=== PATIENT | female | born 1965 | race Caucasian/White ===

== ENCOUNTER 2018-07-01 12:02 | Emergency (ER) | payer SELFPAY ==
[2018-07-01] MEDS ORDERED: ASPIRIN 81 MG CHEWABLE TABLET ONE (12:31)
[2018-07-01 12:53] LABS: Absolute Lymphocytes (CBC) 2.1 K/uL (0.7-4.9); Absolute Monocytes 0.4 K/uL (0.1-1.3); Absolute Neutrophil 3.7 K/uL (1.8-8.0); Basophils % 0.6 % (0-1.3); Hematocrit 42.6 % (36.0-45.0); Lymphocytes % 32.5 % (15.3-44.8); MCH 26.4 pg (27.0-35.0); MCV 81.2 fL (80-100); MPV 7.2 fL (7.6-11.3); Monocytes % 6.1 % (3.3-12.3); RBC Red Blood Cell Count 5.25 M/uL (3.86-4.86)
[2018-07-01 12:55] LABS: Protime INR 1.08
[2018-07-01 13:14] LABS: Albumin 3.8 g/dL (3.4-5.0); Bilirubin Direct 0.1 mg/dL (0-0.2); Bilirubin Total 0.3 mg/dL (0.2-1.0); Magnesium 2.3 mg/dL (1.8-2.4); Potassium 4.1 mmol/L (3.5-5.1); Protein, Total 7.3 g/dL (6.4-8.2)
--- NOTE | 2018-07-01 13:16 | RAD REPORT ---
EXAM DESCRIPTION: RAD - Chest Pa And Lat (2 Views) - 07/01/2018 1:11 pm CLINICAL HISTORY: Shortness of breath, intermittent chest pain COMPARISON: None. TECHNIQUE: PA and lateral views of the chest were obtained. FINDINGS: The lungs are clear. Heart size is normal and central vasculature is within normal limit s. No pleural effusion or pneumothorax seen. No acute bony finding noted. No aortic abnormality. IMPRESSION: No acute cardiopulmonary process.
[2018-07-01] MEDS ORDERED: LORazepam 2 MG/ML VIAL ONE (13:51)
--- NOTE | 2018-07-01 14:15 | RAD REPORT ---
EXAM DESCRIPTION: CT - Chest For Pe Angio - 07/01/2018 2:02 pm CLINICAL HISTORY: Chest pain, shortness of breath COMPARISON: Chest films same date TECHNIQUE: Dynamically enhanced 3 mm thick images of the chest were obtained during administration o f approximately 150mL Isovue 370 IV contrast. Coronal and oblique MIP reconstruction images were gene rated and reviewed. Exam utilizes a protocol to evaluate the pulmonary arterial tree. All CT scans are performed using dose optimization technique as appropriate and may include automated exposure control or mA/KV adjustment according to patient size. FINDINGS: No pulmonary emboli are identified. The aorta as imaged shows no acute or suspicious finding. No pericardial thickening or effusion. No consolidation, mass or focal infiltrate seen. There is some motion degradation present. A mild int erstitial edema or infiltrate is not confirmed but could be potentially masked. No pleural effusion o r pleural thickening. No mediastinal or hilar suspicious masses. No chest wall masses or abnormal axillary lymphadenopathy. IMPRESSION: No pulmonary emboli identified. No mass, consolidation or focal lung parenchymal process. No significant infiltrate seen. Mild underlying motion degradation could potentially mask minimal int erstitial edema or infiltrate.
--- NOTE | 2018-07-01 15:52 | EDPHYS ---
Physician Documentation [facility] Name: Dona Gaitan Age: 52 yrs Sex: Female : 1965 Arrival Date: 07/01/2018 Time: 12:04 Bed 19 Private MD: None, None ED Physician Gonzalo Perez HPI: 07/01 15:42 This 52 yrs old Female presents to ER via Ambulatory with complaints of Chest wa Pain, Shortness Of Breath. 15:42 The patient or guardian reports chest pain that is located primarily in the substernal wa area, chest, c/o chest pain and SOB. exertional in nature. associated with dizziness, nausea. states almost passed out a week ago at [facility]. 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 Onset: 1 year(s) ago. The pain radiates to both arms, neck, jaw. Associated signs and symptoms: Pertinent positives: dizziness, near-syncope, shortness of breath, Pertinent negatives: abdominal pain, cough. The chest pain is described as a pressure. Duration: The patient or guardian reports multiple episodes, that are intermittent, the episodes last approximately 5 minute(s). Modifying factors: The symptoms are alleviated by nothing. the symptoms are aggravated by exertion. Severity of pain: At its worst the pain was moderate in the emergency department the pain is actually worse. The patient has experienced similar episodes in the past. The patient has not recently seen a physician, has appt to see Dr. Ivy in the AM. 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 - Social history:: Smoking status: Patient/guardian denies using tobacco. - Ebola Screening: : Patient negative for fever greater than or equal to 101.5 degrees Fahrenheit, and additional compatible Ebola Virus Disease symptoms Patient denies exposure to infectious person Patient denies travel to an Ebola-affected area in the 21 days before illness onset No symptoms or risks identified at this time. - Family history:: not pertinent. - Hospitalizations: : No recent hospitalization is reported. ROS: 15:44 Constitutional: Negative for fever, chills, and weight loss, Eyes: Negative for injury, wa pain, redness, and discharge, ENT: Negative for injury, pain, and discharge, Neck: Negative for injury, pain, and swelling, Abdomen/GI: Negative for abdominal pain, nausea, vomiting, diarrhea, and constipation, Back: Negative for injury and pain, : Negative for injury, bleeding, discharge, and swelling, MS/Extremity: Negative for injury and deformity, Skin: Negative for injury, rash, and discoloration, Neuro: Negative for headache, weakness, numbness, tingling, and seizure, Psych: Negative for depression, anxiety, suicide ideation, homicidal ideation, and hallucinations. 15:44 Cardiovascular: Positive for chest pain, Negative for edema, orthopnea, palpitations. 15:44 Respiratory: Positive for shortness of breath, at rest. Negative for cough, sputum production. Exam: 15:45 Constitutional: This is a well developed, well nourished patient who is awake, alert, wa and in no acute distress. Head/Face: Normocephalic, atraumatic. Eyes: Pupils equal round and reactive to light, extra-ocular motions intact. Lids and lashes normal. Conjunctiva and sclera are non-icteric and not injected. Cornea within normal limits. Periorbital areas with no swelling, redness, or edema. ENT: Nares patent. No nasal discharge, no septal abnormalities noted. Tympanic membranes are normal and external auditory canals are clear. Oropharynx with no redness, swelling, or masses, exudates, or evidence of obstruction, uvula midline. Mucous membranes moist. Neck: Trachea midline, no thyromegaly or masses palpated, and no cervical lymphadenopathy. Supple, full range of motion without nuchal rigidity, or vertebral point tenderness. No Meningismus. Chest/axilla: Normal chest wall appearance and motion. Nontender with no deformity. No lesions are appreciated. Cardiovascular: Regular rate and rhythm with a normal S1 and S2. No gallops, murmurs, or rubs. Normal PMI, no JVD. No pulse deficits. Respiratory: Lungs have equal breath sounds bilaterally, clear to auscultation and percussion. No rales, rhonchi or wheezes noted. No increased work of breathing, no retractions or nasal flaring. Abdomen/GI: Soft, non-tender, with normal bowel sounds. No distension or tympany. No guarding or rebound. No evidence of tenderness throughout. Back: No spinal tenderness. No costovertebral tenderness. Full range of motion. Skin: Warm, dry with normal turgor. Normal color with no rashes, no lesions, and no evidence of cellulitis. MS/ Extremity: Pulses equal, no cyanosis. Neurovascular intact. Full, normal range of motion. Neuro: Awake and alert, GCS 15, oriented to person, place, time, and situation. Cranial nerves II-XII grossly intact. Motor strength 5/5 in all extremities. Sensory grossly intact. Cerebellar exam normal. Normal gait. Psych: Awake, alert, with orientation to person, place and time. Behavior, mood, and affect are within normal limits. Vital Signs: 12:10 BP 133 / 87; Pulse 65; Resp 22; Temp 97.7; Pulse Ox 99% on R/A; Weight 104.33 kg; sg Height 4 ft. 11 in. (149.86 cm); Pain 10/10; 12:50 BP 105 / 95; Pulse 65; Resp 18; Pulse Ox 99% on R/A; Pain 7/10; em 14:17 BP 112 / 65; Pulse 73; Resp 18; Pulse Ox 97% on R/A; Pain 5/10; em 15:13 BP 110 / 65; Pulse 65; Resp 15; Pulse Ox 99% on R/A; Pain 5/10; em 15:47 BP 107 / 53; Pulse 64; Resp 14; Pulse Ox 97% on R/A; Pain 7/10; em 12:10 Body Mass Index 46.45 (104.33 kg, 149.86 cm) MDM: 12:09 Patient medically screened. wa 15:45 Differential diagnosis: acute myocardial infarction, anxiety, coronary artery disease wa congestive heart failure pleurisy, pneumonia, pulmonary embolus, unstable angina. 15:46 Data reviewed: vital signs, nurses notes, lab test result(s), EKG, radiologic studies. wa Test interpretation: by ED physician or midlevel provider: EKG: HR 65. normal study. no dysrhythmic or ischemic changes noted. 15:47 Test interpretation: by ED physician or midlevel provider: labs noted within nml wa limits, including troponin. 15:49 Special discussion: discussed case with Dr. Everett, cardiology. advised pt may go and wa come see them in the AM. pt advised. agrees with plan. 15:50 Response to treatment: the patient's symptoms have resolved after treatment. Physician or consultation: Skip Ordonez MD. 07/01 12:24 Order name: Blood Culture Adult (2) or 07/01 12:24 Order name: BMP; Complete Time: 14:56 or 07/01 12:24 Order name: CBC with Diff; Complete Time: 14:56 or 07/01 12:24 Order name: Hepatic Function; Complete Time: 14:56 or 07/01 12:24 Order name: Lipase; Complete Time: 14:56 or 07/01 12:24 Order name: Magnesium; Complete Time: 14:56 or 07/01 12:24 Order name: XRAY Chest Pa And Lat (2 Views); Complete Time: 14:56 or 07/01 12:24 Order name: CT Chest For PE Angio; Complete Time: 14:56 or 07/01 12:24 Order name: NT PRO-BNP; Complete Time: 14:56 or 07/01 12:24 Order name: PT-INR; Complete Time: 14:56 or 07/01 12:24 Order name: Troponin (emerg Dept Use Only); Complete Time: 14:56 or 07/01 12:24 Order name: EKG; Complete Time: 12:25 or 07/01 12:24 Order name: Cardiac monitoring; Complete Time: 12:42 or 07/01 12:24 Order name: EKG - Nurse/Tech; Complete Time: 12:42 or 07/01 12:24 Order name: IV Saline Lock; Complete Time: 12:42 or 07/01 12:24 Order name: Labs collected and sent; Complete Time: 12:42 or 07/01 12:24 Order name: O2 Per Protocol; Complete Time: 12:42 or 07/01 12:24 Order name: O2 Sat Monitoring; Complete Time: 12:42 or 07/01 12:24 Order name: Urine Dipstick-Ancillary (obtain specimen); Complete Time: 13:23 or Administered Medications: 12:42 Drug: Aspirin Chewable Tablet 324 mg Route: PO; em 13:23 Follow up: Response: No adverse reaction em 13:50 Drug: Ativan 0.5 mg Route: IVP; Site: left antecubital; iw 14:30 Follow up: Response: No adverse reaction; Pain is decreased em 13:55 Not Given (Duplicate Order): Ativan 0.5 mg IVP once wa Disposition: 07/01/18 15:52 Discharged to Home. Impression: Chest pain, acute on chronic, Shortness of Breath. - Condition is Stable. - Discharge Instructions: Shortness of Breath, [id number], Nonspecific Chest Pain, [id number]. - Medication Reconciliation Form, Thank You Letter, Antibiotic Education, Prescription Opioid Use form. - Follow up: Tomi Ivy MD; When: Tomorrow. - Problem is new. - Symptoms have improved. - Notes: take a baby aspirin daily. please follow up tomorrow with your appointment with the furnace liner Dr. Ivy. Signatures: Dispatcher [employer] [facility] Ulysses Khan, GATE ATTENDANT GATE ATTENDANT em Velma Saavedra RN RN Gonzalo Perez MD MD wa Corrections: (The following items were deleted from the chart) 14:04 12:25 Blood Culture ordered. [facility] EDMD 16:09 15:52 07/01/2018 15:52 Discharged to Home. Impression: Chest pain, acute on chronic; em Shortness of Breath. Condition is Stable. Forms are Medication Reconciliation Form, Thank You Letter, Antibiotic Education, Prescription Opioid Use. Follow up: Tomi Ivy; When: Tomorrow. Problem is new. Symptoms have improved. wa
--- NOTE | 2018-07-01 15:52 | ER ---
Nurse's Notes [facility] Name: Dona Gaitan Age: 52 yrs Sex: Female : 1965 Arrival Date: 07/01/2018 Time: 12:04 Bed 19 Private MD: None, None Diagnosis: Chest pain, acute on chronic;Shortness of Breath Presentation: 07/01 12:09 Presenting complaint: Patient states: CP off and on for about a year, reports worsening sg since nearly passing out on last Thursday at the [facility], has had SOB since then, CP today that radiates up and into the left arm and neck and jaw, reports Nausea, denies Fever/Vomiting/Diarrhea. Transition of care: patient was not received from another setting of care. Onset of symptoms was July 01, 2018. Risk Assessment: Do you want to hurt yourself or someone else? Patient reports no desire to harm self or others. Initial Sepsis Screen: Does the patient meet any 2 criteria? RR > 20 per min. No. Patient's initial sepsis screen is negative. Does the patient have a suspected source of infection? No. Patient's initial sepsis screen is negative. Care prior to arrival: None. 12:09 Method Of Arrival: Ambulatory sg 12:09 Acuity: JIE 3 sg COAL PICKER: 12:10 LMP N/A - Irregular menses sg Historical: - Allergies: 12:55 PENICILLINS; em 12:55 "tequin"; em - PMHx: 12:55 None; em - PSHx: 12:55 Tonsillectomy; em - Immunization history:: Adult Immunizations up to date. - Social history:: Smoking status: Patient/guardian denies using tobacco. - Ebola Screening: : Patient negative for fever greater than or equal to 101.5 degrees Fahrenheit, and additional compatible Ebola Virus Disease symptoms Patient denies exposure to infectious person Patient denies travel to an Ebola-affected area in the 21 days before illness onset No symptoms or risks identified at this time. - Family history:: not pertinent. - Hospitalizations: : No recent hospitalization is reported. Screenin:45 Abuse screen: Denies threats or abuse. Nutritional screening: No deficits noted. em Tuberculosis screening: No symptoms or risk factors identified. Fall Risk None identified. Assessment: 12:30 General: Appears in no apparent distress. uncomfortable, Behavior is cooperative, em anxious, reports CP for about a year, yesterday became worse and almost passed out, also has SOB on exertion, denies N/V. Pain: Complains of pain in chest Pain does not radiate. Pain began over a year ago. Neuro: Level of Consciousness is awake, alert, obeys commands, Oriented to person, place, time, situation. Cardiovascular: Reports chest pain, Denies nausea, vomiting, Capillary refill < 3 seconds Patient's skin is warm and dry. Respiratory: Reports shortness of breath on exertion Airway is patent Respiratory effort is even, unlabored, Respiratory pattern is regular, symmetrical, Breath sounds are clear bilaterally. Denies cough. GI: Abdomen is obese. : No signs and/or symptoms were reported regarding the genitourinary system. EENT: No signs and/or symptoms were reported regarding the EENT system. Derm: Skin is intact, Skin is pink, warm \\T\\ dry. Musculoskeletal: Capillary refill < 3 seconds, Range of motion: intact in all extremities. 12:45 Reassessment: Patient appears in no apparent distress at this time. I agree with above iw assessment by Ulysses Khan LVN. 13:25 Reassessment: Patient appears in no apparent distress at this time. Patient and/or em family updated on plan of care and expected duration. Pain level reassessed. Patient is alert, oriented x 3, equal unlabored respirations, skin warm/dry/pink. 13:50 Reassessment: pt states she got very anxious while attempting CT, Dr. Perez was iw notified, verbal order for Ativan 0.5 mg IVP, given now. 14:50 Reassessment: Patient appears in no apparent distress at this time. Patient and/or em family updated on plan of care and expected duration. Pain level reassessed. Patient is alert, oriented x 3, equal unlabored respirations, skin warm/dry/pink. Patient states feeling better. 15:45 Reassessment: Patient appears in no apparent distress at this time. Patient and/or em family updated on plan of care and expected duration. Pain level reassessed. Patient is alert, oriented x 3, equal unlabored respirations, skin warm/dry/pink. rates pain 05/18, Dr. Perez notified, no new orders received. Vital Signs: 12:10 BP 133 / 87; Pulse 65; Resp 22; Temp 97.7; Pulse Ox 99% on R/A; Weight 104.33 kg; sg Height 4 ft. 11 in. (149.86 cm); Pain 10/10; 12:50 BP 105 / 95; Pulse 65; Resp 18; Pulse Ox 99% on R/A; Pain 7/10; em 14:17 BP 112 / 65; Pulse 73; Resp 18; Pulse Ox 97% on R/A; Pain 5/10; em 15:13 BP 110 / 65; Pulse 65; Resp 15; Pulse Ox 99% on R/A; Pain 5/10; em 15:47 BP 107 / 53; Pulse 64; Resp 14; Pulse Ox 97% on R/A; Pain 7/10; em 12:10 Body Mass Index 46.45 (104.33 kg, 149.86 cm) ED Course: 12:04 Patient arrived in ED. mr 12:05 None, None is Private Physician. mr 12:08 Lj Antoine, RN is Primary Nurse. sg 12:09 Gonzalo Perez MD is Attending Physician. wa 12:10 Triage completed. sg 12:11 Arm band placed on. sg 12:12 Ulysses Khan LVN is Primary Nurse. em 12:20 EKG done, by oil well fishing tool technician. reviewed by Gonzalo Perez MD. at1 12:35 No provider procedures requiring assistance completed. Inserted saline lock: 22 gauge em in left antecubital area, using aseptic technique. Blood collected. 12:35 Initial lab(s) drawn, by ms, sent to lab. Patient maintains SpO2 saturation greater em than 95% on room air. 12:45 Patient has correct armband on for positive identification. basket bottom machine operator on. Pulse em ox on. NIBP on. 13:00 Patient moved to radiology via wheelchair. 1 13:10 X-ray completed. Patient tolerated procedure well. 1 13:10 XRAY Chest Pa And Lat (2 Views) In Process Unspecified. EDMS 13:11 Patient moved back from radiology. 1 13:11 Blood Culture Adult (2) Sent. dm5 14:02 CT Chest For PE Angio In Process Unspecified. EDMS 15:51 Tomi Ivy MD is Referral Physician. wa 16:06 IV discontinued, intact, bleeding controlled, No redness/swelling at site. Pressure em dressing applied. Administered Medications: 12:42 Drug: Aspirin Chewable Tablet 324 mg Route: PO; em 13:23 Follow up: Response: No adverse reaction em 13:50 Drug: Ativan 0.5 mg Route: IVP; Site: left antecubital; iw 14:30 Follow up: Response: No adverse reaction; Pain is decreased em 13:55 Not Given (Duplicate Order): Ativan 0.5 mg IVP once wa Outcome: 15:52 Discharge ordered by . wa 16:06 Discharged to home ambulatory. em 16:06 Condition: good 16:06 Discharge instructions given to patient, family, Instructed on discharge instructions, follow up and referral plans. Demonstrated understanding of instructions, follow-up care. 16:09 Patient left the ED. em Signatures: Dispatcher [employer] Ana Ross, RN RN Lj Forrest, RN ROXIE Sulema Martinez mr Horvath, Julia mh1 Ulysses Khan, EXTRUSION DIE CORRECTOR EXTRUSION DIE CORRECTOR em Velma Saavedra RN RN Maritza Rich, data technician EKG Tat1 Gonzalo Perez MD MD wa
--- NOTE | 2018-07-01 16:28 | EKG ---
Test Date: 2018-07-01 Test Time: 12:15:12 Mixing Supervisor: YAIR MEASUREMENT RESULTS: Intervals: Rate: 65 IN: 156 QRSD: 82 QT: 408 QTc: 424 Karnack: P: 22 IN: 156 QRS: -8 T: 33 INTERPRETIVE STATEMENTS: Normal sinus rhythm Normal ECG No previous ECG available for comparison Electronically Signed On 07-01-18 16:27:09 CDT by Skip Ordonez
== END 2018-07-01 16:09 | disposition home or self-care (01) ==
LOC: ER 12:02
DX: R07.89 Other chest pain (principal); Z88.0 Allergy status to penicillin
CPT/HCPCS: 36415; 71046; 71275; 80048; 80076; 83690; 83735; 83880; 84484; 85025; 85610; 93005; 96374; 99285; Q9967

== ENCOUNTER 2022-03-25 08:41 | Inpatient (IN) | payer SELFPAY ==
[2022-03-25] MEDS ORDERED: ONDANSETRON 4 MG/2 ML VIAL ONE (09:16)
[2022-03-25] MEDS ORDERED: FAMOTIDINE 20 MG/2 ML VIAL IV ONE (09:16)
[2022-03-25] MEDS ORDERED: NA CHLORIDE 0.9% 2,000 ML ONE (09:17)
[2022-03-25 09:30] LABS: Absolute Lymphocytes (CBC) 1.5 K/uL (0.7-4.9); Hematocrit 45.2 % (36.0-45.0); Lymphocytes % 9.8 % (15.3-44.8); MPV 6.7 fL (7.6-11.3); RBC Red Blood Cell Count 5.74 M/uL (3.86-4.86)
[2022-03-25 09:44] LABS: Bilirubin Direct 0.1 mg/dL (0-0.2); Bilirubin Total 0.5 mg/dL (0.2-1.0); Magnesium 2.2 mg/dL (1.8-2.4); Potassium 3.7 mmol/L (3.5-5.1); Troponin High Sensitivity 5.3 pg/mL (<58.9)
--- NOTE | 2022-03-25 10:00 | RAD REPORT ---
EXAM DESCRIPTION: US - Abdomen Exam Limited - 03/25/2022 9:44 am CLINICAL HISTORY: ABD PAIN COMPARISON: ABDOMINAL EXAM LIMITED dated 07/30/2010 FINDINGS: A single 10-12 mm size gallstone is present near the neck of the gallbladder. No other sto ne or sludge identifiable. There is no wall thickening or pericholecystic fluid. No common duct stone or biliary tree dilatation identified. IMPRESSION: Single 10-12 mm size gallstone with no other gallbladder or biliary tree finding.
--- NOTE | 2022-03-25 10:00 | RAD REPORT ---
EXAM DESCRIPTION: RAD - Chest Single View - 03/25/2022 9:47 am CLINICAL HISTORY: ABDOMINAL DISTENTION COMPARISON: Two view chest 07/01/2018 TECHNIQUE: AP portable chest image was obtained 03/25/2022 9:47 am . FINDINGS: Lungs are clear. Interstitial pattern matches comparison. Heart and vasculature are normal . No measurable pleural effusion and no pneumothorax. No acute bony abnormality seen. No acute aortic findings suspected. IMPRESSION: No acute cardiopulmonary process. No significant change from comparison study.
[2022-03-25 10:49] LABS: Protime INR 1.15
--- NOTE | 2022-03-25 10:55 | RAD REPORT ---
EXAM DESCRIPTION: CT - Abdomen Pelvis W Contrast - 03/25/2022 10:28 am CLINICAL HISTORY: Abdominal pain, acute, nonlocalized COMPARISON: Abdomen Exam Limited dated 03/25/2022; CT ABD PELVIS W CONTRAST dated 07/30/2010 TECHNIQUE: Biphasic, helical CT imaging of the abdomen and pelvis was performed following 100 ml non -ionic IV contrast. No oral contrast administered. All CT scans are performed using dose optimization technique as appropriate and may include automated exposure control or mA/KV adjustment according to patient size. FINDINGS: No suspicious findings in the lung bases. Diffuse fatty infiltration of the liver is present with no focal liver lesion. No portal vein abnorma lity. Pancreas and spleen show no suspicious findings. A single 10-12 mm gallstone is seen near the n jelly of the gallbladder. This matches the ultrasound finding. No gallbladder dilatation, wall thickeni ng or edema seen. No biliary tree dilatation. Symmetric renal function is seen with no hydronephrosis or suspicious renal mass. No pyelonephritis o r acute parenchymal process. No bladder abnormalities. No adrenal abnormalities. Uterus and ovaries s how no suspicious findings. No gastric dilatation or gastric wall thickening seen. Small bowel loops are not dilated. Distal smal l bowel drake are mildly prominent. Terminal ileum and ileocecal valve are unremarkable. The appendix is not clearly defined. Appendix was not clearly seen on the 2009 CT study. Colon is not dilated. No free air or pneumatosis present. There is a small quantity of free fluid in the cul de sac and in the right lower quadrant. Trace amounts of stranding in the fatty tissues. No hernia, mass or bulky lymphadenopathy. No suspicious bony findings. IMPRESSION: No bowel obstruction, free air or surgically emergent finding. Patient has minimal amount of free fluid and some stranding in the fatty tissues of the pelvis. Loops of small bowel are prominent and could reflect a nonspecific enteritis. The appendix is not yu albina defined as a normal structure but there are no direct or indirect findings suspicious for acute appendicitis. The appendix is not clearly visible on the 2010 CT study. No acute or BSW finding. Liver shows fatty infiltration.
--- NOTE | 2022-03-25 11:05 | ER ---
Nurse's Notes [facility] Name: Dona Gaitan Age: 56 yrs Sex: Female : 1965 Arrival Date: 03/25/2022 Time: 08:42 Bed 7 Private MD: Diagnosis: Abdominal pain, Generalized;Other cholelithiasis without obstruction;Vomiting;Diarrhea, unspecified;Elevated white blood cell count;Other specified noninfective gastroenteritis and colitis;Dehydration Presentation: 03/25 08:42 Chief complaint: EMS states: Pt c/o nausea and vomiting x 3 days, diarrhea x 4 days, ph also reports RUQ when symptoms began. No fever, VSS, BGL 177, received Zofran 4mg IVP x 2 and 500 mL NS. Coronavirus screen: Vaccine status: Patient reports being unvaccinated. Ebola Screen: No symptoms or risks identified at this time. Initial Sepsis Screen: Does the patient meet any 2 criteria? No. Patient's initial sepsis screen is negative. Does the patient have a suspected source of infection? No. Patient's initial sepsis screen is negative. Risk Assessment: Do you want to hurt yourself or someone else? Patient reports no desire to harm self or others. Onset of symptoms was March 25, 2022. 08:42 Method Of Arrival: EMS: [facility] 08:42 Acuity: JIE 3 ph Triage Assessment: 08:50 General: Appears in no apparent distress. uncomfortable, Behavior is calm, cooperative, ph appropriate for age, Denies fever, chills. Pain: Complains of pain in right upper quadrant. Neuro: Arthur Agitation-Sedation Scale (RASS): 0 - Alert and Calm Level of Consciousness is awake, alert, obeys commands, Oriented to person, place, time, situation. Cardiovascular: Capillary refill < 3 seconds in bilateral fingers Patient's skin is warm and dry. Respiratory: Airway is patent Respiratory effort is even, unlabored, Respiratory pattern is regular, symmetrical. GI: Reports upper abdominal pain, diarrhea, nausea, vomiting. Derm: Skin is intact, Skin is pink, warm \\T\\ dry. Musculoskeletal: Circulation, motion, and sensation intact. Range of motion: intact in all extremities. 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 - Social history:: Smoking status: Patient denies any tobacco usage or history of. Screenin:49 Abuse screen: Denies threats or abuse. Denies injuries from another. Nutritional ph screening: No deficits noted. Tuberculosis screening: No symptoms or risk factors identified. Fall Risk None identified. Assessment: 08:51 General: SEE TRIAGE ASSESSMENT. ph 09:45 Reassessment: No changes from previously documented assessment. Patient and/or family ll1 updated on plan of care and expected duration. Pain level reassessed. Patient is alert, oriented x 3, equal unlabored respirations, skin warm/dry/pink. 10:45 Reassessment: No changes from previously documented assessment. Patient and/or family ll1 updated on plan of care and expected duration. Pain level reassessed. Patient is alert, oriented x 3, equal unlabored respirations, skin warm/dry/pink. GI: Reports diarrhea. 12:01 Reassessment: Patient appears in no apparent distress at this time. Patient and/or ph family updated on plan of care and expected duration. Pain level reassessed. Patient is alert, oriented x 3, equal unlabored respirations, skin warm/dry/pink. 13:00 Reassessment: No changes from previously documented assessment. Patient and/or family ll1 updated on plan of care and expected duration. Pain level reassessed. Patient is alert, oriented x 3, equal unlabored respirations, skin warm/dry/pink. 14:00 Reassessment: No changes from previously documented assessment. Patient and/or family ll1 updated on plan of care and expected duration. Pain level reassessed. Patient is alert, oriented x 3, equal unlabored respirations, skin warm/dry/pink. GI: Reports nausea. 14:46 Reassessment: No changes from previously documented assessment. Patient and/or family ll1 updated on plan of care and expected duration. Pain level reassessed. Patient is alert, oriented x 3, equal unlabored respirations, skin warm/dry/pink. Vital Signs: 08:42 BP 137 / 98; Pulse 104; Resp 18; Temp 97.4; Pulse Ox 94% on R/A; Weight 104.33 kg; ph Height 4 ft. 11 in. (149.86 cm); 09:15 BP 148 / 86; Pulse 88; Resp 17; Pulse Ox 97% ; ll1 10:15 BP 153 / 84; Pulse 92; Resp 17; Pulse Ox 97% on R/A; ll1 14:35 BP 158 / 70; Pulse 92; Resp 17; Temp 97.2; Pulse Ox 97% on R/A; Pain 7/10; ll1 08:42 Body Mass Index 46.45 (104.33 kg, 149.86 cm) ph ED Course: 08:42 Patient arrived in ED. ph 08:43 Mitchell Matson MD is Attending Physician. yovani 08:48 Triage completed. ph 08:48 Arm band placed on. ph 08:49 Patient has correct armband on for positive identification. Bed in low position. Call ph light in reach. Side rails up X 1. Pulse ox on. NIBP on. Door closed. Noise minimized. Warm blanket given. 09:09 Racheal Perry, ROXIE is Primary Nurse. ll1 09:19 Lactate Sent. mh5 09:19 SARS-COV-2 RT PCR (Document "Date of Onset" if Symptomatic) Sent. mh5 09:19 Basic Metabolic Panel Sent. mh5 09:19 CBC with Diff Sent. mh5 09:19 LFT's Sent. mh5 09:19 Magnesium Sent. 5 09:19 NT PRO-BNP Sent. 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 5 09:20 PT-INR Sent. 5 09:20 Troponin HS Sent. mh5 09:20 Initial lab(s) drawn, by ar, sent to lab. EKG done, by ED staff, reviewed by Mitchell Matson MD. Maintain EMS IV. Dressing intact. Good blood return noted. Site clean \\T\\ dry. 09:45 XRAY Chest (1 view) In Process Unspecified. EDMS 09:45 US Abdomen Limited In Process Unspecified. EDMS 10:15 Inserted saline lock: 22 gauge in left antecubital area, using aseptic technique. Blood ll1 collected. 10:16 IV discontinued, intact, bleeding controlled, No redness/swelling at site. Pressure ll1 dressing applied, R hand IV DC'd. 10:32 CT Abd/Pelvis - IV Contrast Only In Process Unspecified. EDMS 11:00 Amna Betts MD is Hospitalizing Provider. yovani 12:01 No provider procedures requiring assistance completed. Patient admitted, IV remains in ph place. Administered Medications: 09:19 Drug: NS 0.9% (30 ml/kg) 30 ml/kg Route: IV; Rate: bolus; Site: right hand; ll1 11:20 Follow up: Response: No adverse reaction; IV Status: Completed infusion; IV Intake: ll1 2000ml 09:19 Drug: Pepcid (famotidine) 20 mg Route: IVP; Site: right hand; ll1 10:16 Follow up: Response: No adverse reaction ll1 09:19 Drug: Zofran (Ondansetron) 4 mg Route: IVP; Site: right hand; ll1 10:16 Follow up: Response: No adverse reaction ll1 11:19 Drug: Flagyl (metroNIDAZOLE) 500 mg Volume: 100 ml; Route: IVPB; Rate: 200 ml/hr; ll1 Infused Over: 30 mins; Site: left antecubital; 12:00 Follow up: Response: No adverse reaction; IV Status: Completed infusion ph 11:19 Drug: morphine 4 mg Route: IVP; Site: left antecubital; ll1 11:59 Follow up: Response: No adverse reaction; Pain is decreased ph 11:20 Drug: Phenergan (promethazine) 12.5 mg Route: IVP; Site: left antecubital; ll1 11:59 Follow up: Response: No adverse reaction ph 11:58 Drug: Cipro (ciprofloxacin) 400 mg Volume: 200 ml; Route: IVPB; Infused Over: 60 mins; ph Site: left antecubital; 14:49 Follow up: Response: No adverse reaction; IV Status: Completed infusion; IV Intake: ll1 200ml 14:29 Drug: Phenergan (promethazine) 6.25 mg Route: IVP; Site: left antecubital; ll1 14:46 Follow up: Response: No adverse reaction ll1 14:30 Drug: morphine 4 mg {Note: rass 0, pain 9/10.} Route: IVP; Site: left antecubital; ll1 14:46 Follow up: Response: No adverse reaction ll1 Medication: 08:49 VIS not applicable for this client. ph Intake: 11:20 IV: 2000ml; Total: 2000ml. ll1 14:49 IV: 200ml; Total: 2200ml. ll1 Outcome: 11:05 Decision to Hospitalize by Provider. [facility] 14:37 Admitted to Tele accompanied by tech, via wheelchair, room 229, with chart, Report ll1 called to Maryjane Mata RN on . 14:37 Condition: stable 14:37 Instructed on the need for admit. 14:50 Patient left the ED. ll1 Signatures: Dispatcher [employer] EDMitchell Ward MD MD cha Hall, Patricia, RN RN [place] [id number] Racheal Perry RN RN ll1
--- NOTE | 2022-03-25 11:05 | EDPHYS ---
Physician Documentation [facility] Name: Dona Gaitan Age: 56 yrs Sex: Female : 1965 Arrival Date: 03/25/2022 Time: 08:42 Bed 7 Private MD: EDER Physician Mitchell Matson HPI: 03/25 09:04 This 56 yrs old Female presents to ER via EMS with complaints of yovani Nausea/Vomiting/Diarrhea. 09:04 The patient presents to the emergency department with nausea, vomiting. The patient yovani presents to the emergency department with diarrhea, that is continuous, abdominal pain, of the right upper quadrant, left upper quadrant and right lower quadrant. Onset: The symptoms/episode began/occurred 5 day(s) ago. Possible causes: unknown. The symptoms are aggravated by nothing. The symptoms are alleviated by nothing. Associated signs and symptoms: Pertinent positives: abdominal pain, diarrhea, nausea, vomiting. Severity of symptoms: At their worst the symptoms were mild in the emergency department the symptoms are unchanged. The patient has not experienced similar symptoms in the past. KAIAWHINA: 14:52 LMP N/A - Post-menopause ll1 Historical: - Allergies: 08:48 "tequin"; ph 08:48 PENICILLINS; ph - PMHx: 08:48 None; ph - Immunization history:: Adult Immunizations unknown. - Social history:: Smoking status: Patient denies any tobacco usage or history of. ROS: 09:06 Constitutional: Negative for fever, chills, and weight loss, Eyes: Negative for injury, yovani pain, redness, and discharge, ENT: Negative for injury, pain, and discharge, Neck: Negative for injury, pain, and swelling, Cardiovascular: Negative for chest pain, palpitations, and edema, Respiratory: Negative for shortness of breath, cough, wheezing, and pleuritic chest pain, Back: Negative for injury and pain, : Negative for injury, bleeding, discharge, and swelling, MS/Extremity: Negative for injury and deformity, Skin: Negative for injury, rash, and discoloration, Neuro: Negative for headache, weakness, numbness, tingling, and seizure, Psych: Negative for depression, anxiety, suicide ideation, homicidal ideation, and hallucinations, Allergy/Immunology: Negative for hives, rash, and allergies, Endocrine: Negative for neck swelling, polydipsia, polyuria, polyphagia, and marked weight changes, Hematologic/Lymphatic: Negative for swollen nodes, abnormal bleeding, and unusual bruising. 09:06 Abdomen/GI: Positive for abdominal pain, of the epigastric area, right upper quadrant, left upper quadrant and right lower quadrant. Exam: 09:06 Constitutional: This is a well developed, well nourished patient who is awake, alert, yovani and in no acute distress. Head/Face: Normocephalic, atraumatic. Eyes: Pupils equal round and reactive to light, extra-ocular motions intact. Lids and lashes normal. Conjunctiva and sclera are non-icteric and not injected. Cornea within normal limits. Periorbital areas with no swelling, redness, or edema. ENT: Nares patent. No nasal discharge, no septal abnormalities noted. Tympanic membranes are normal and external auditory canals are clear. Oropharynx with no redness, swelling, or masses, exudates, or evidence of obstruction, uvula midline. Mucous membranes moist. Neck: Trachea midline, no thyromegaly or masses palpated, and no cervical lymphadenopathy. Supple, full range of motion without nuchal rigidity, or vertebral point tenderness. No Meningismus. Chest/axilla: Normal chest wall appearance and motion. Nontender with no deformity. No lesions are appreciated. Cardiovascular: Regular rate and rhythm with a normal S1 and S2. No gallops, murmurs, or rubs. Normal PMI, no JVD. No pulse deficits. Respiratory: Lungs have equal breath sounds bilaterally, clear to auscultation and percussion. No rales, rhonchi or wheezes noted. No increased work of breathing, no retractions or nasal flaring. Back: No spinal tenderness. No costovertebral tenderness. Full range of motion. Female : Normal external genitalia. Skin: Warm, dry with normal turgor. Normal color with no rashes, no lesions, and no evidence of cellulitis. MS/ Extremity: Pulses equal, no cyanosis. Neurovascular intact. Full, normal range of motion. Neuro: Awake and alert, GCS 15, oriented to person, place, time, and situation. Cranial nerves II-XII grossly intact. Motor strength 5/5 in all extremities. Sensory grossly intact. Cerebellar exam normal. Normal gait. Psych: Awake, alert, with orientation to person, place and time. Behavior, mood, and affect are within normal limits. 09:06 Abdomen/GI: Inspection: abdomen appears normal, Bowel sounds: normal, Palpation: mild abdominal tenderness, in the epigastric area and right upper quadrant, Liver: no appreciated palpable abnormalities, Hernia: not appreciated. 09:35 ECG was reviewed by the Attending Physician. [facility] Vital Signs: 08:42 BP 137 / 98; Pulse 104; Resp 18; Temp 97.4; Pulse Ox 94% on R/A; Weight 104.33 kg; ph Height 4 ft. 11 in. (149.86 cm); 09:15 BP 148 / 86; Pulse 88; Resp 17; Pulse Ox 97% ; ll1 10:15 BP 153 / 84; Pulse 92; Resp 17; Pulse Ox 97% on R/A; ll1 14:35 BP 158 / 70; Pulse 92; Resp 17; Temp 97.2; Pulse Ox 97% on R/A; Pain 7/10; ll1 08:42 Body Mass Index 46.45 (104.33 kg, 149.86 cm) ph MDM: 08:43 Patient medically screened. [facility] 09:07 Differential diagnosis: cholecystitis, pancreatitis, diverticulitis, viral yovani gastroenteritis, gastroenteritis. Data reviewed: vital signs, nurses notes, lab test result(s), EKG, radiologic studies, CT scan, plain films, ultrasound. 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 Test interpretation: by ED physician or midlevel provider: ECG, plain radiologic studies. Counseling: I had a detailed discussion with the patient and/or guardian regarding: the historical points, exam findings, and any diagnostic results supporting the discharge/admit diagnosis, lab results, radiology results. Medical screen evaluation completed. [facility] emergency medical condition absent. 03/25 09:02 Order name: Basic Metabolic Panel; Complete Time: 10:29 [facility] 03/25 09:02 Order name: CBC with Diff; Complete Time: 10: [facility] 03/25 09:02 Order name: LFT's; Complete Time: 10:29 [facility] 03/25 09:02 Order name: Magnesium; Complete Time: 10: [facility] 03/25 09:02 Order name: NT PRO-BNP; Complete Time: 10: [facility] 03/25 09:02 Order name: PT-INR; Complete Time: 10:57 [facility] 03/25 09:02 Order name: Troponin HS; Complete Time: 10:29 [facility] 03/25 09:02 Order name: Lipase; Complete Time: 10:29 [facility] 03/25 09:03 Order name: Lactate [facility] 03/25 09:03 Order name: Urine Culture [facility] 03/25 09:04 Order name: SARS-COV-2 RT PCR (Document "Date of Onset" if Symptomatic) [facility] 03/25 13:05 Order name: CBC with Automated Diff EDMS 03/25 13:05 Order name: CBC with Automated Diff EDMS 03/25 13:05 Order name: Comprehensive Metabolic Panel [facility] 03/25 09:02 Order name: XRAY Chest (1 view); Complete Time: 10:29 [facility] 03/25 09:02 Order name: EKG; Complete Time: 09:04 [facility] 03/25 09:02 Order name: CT Abd/Pelvis - IV Contrast Only; Complete Time: 10:57 [facility] 03/25 09:02 Order name: US Abdomen Limited; Complete Time: 10:29 [facility] 03/25 13:05 Order name: Comprehensive Metabolic Panel [facility] 03/25 13:07 Order name: Lipase [facility] 03/25 09:02 Order name: Cardiac monitoring; Complete Time: 09:20 [facility] 03/25 09:02 Order name: EKG - Nurse/Tech; Complete Time: 09:20 [facility] 03/25 09:02 Order name: IV Saline Lock; Complete Time: 09:05 [facility] 03/25 09:02 Order name: Labs collected and sent; Complete Time: 09:05 [facility] 03/25 09:02 Order name: O2 Per Protocol; Complete Time: 09:05 [facility] 03/25 09:02 Order name: O2 Sat Monitoring; Complete Time: 09:05 [facility] 03/25 13:05 Order name: Clear Liquid EDMS EC:35 Rate is 90 beats/min. Rhythm is regular. QRS [place] is Normal. CA interval is normal. QRS yovani interval is normal. QT interval is normal. No Q waves. T waves are Normal. No ST changes noted. Clinical impression: Normal ECG and No evidence of ischemia. Interpreted by me. Reviewed by me. Administered Medications: 09:19 Drug: NS 0.9% (30 ml/kg) 30 ml/kg Route: IV; Rate: bolus; Site: right hand; ll1 11:20 Follow up: Response: No adverse reaction; IV Status: Completed infusion; IV Intake: ll1 2000ml 09:19 Drug: Pepcid (famotidine) 20 mg Route: IVP; Site: right hand; ll1 10:16 Follow up: Response: No adverse reaction ll1 09:19 Drug: Zofran (Ondansetron) 4 mg Route: IVP; Site: right hand; ll1 10:16 Follow up: Response: No adverse reaction ll1 11:19 Drug: Flagyl (metroNIDAZOLE) 500 mg Volume: 100 ml; Route: IVPB; Rate: 200 ml/hr; ll1 Infused Over: 30 mins; Site: left antecubital; 12:00 Follow up: Response: No adverse reaction; IV Status: Completed infusion ph 11:19 Drug: morphine 4 mg Route: IVP; Site: left antecubital; ll1 11:59 Follow up: Response: No adverse reaction; Pain is decreased ph 11:20 Drug: Phenergan (promethazine) 12.5 mg Route: IVP; Site: left antecubital; ll1 11:59 Follow up: Response: No adverse reaction ph 11:58 Drug: Cipro (ciprofloxacin) 400 mg Volume: 200 ml; Route: IVPB; Infused Over: 60 mins; ph Site: left antecubital; 14:49 Follow up: Response: No adverse reaction; IV Status: Completed infusion; IV Intake: ll1 200ml 14:29 Drug: Phenergan (promethazine) 6.25 mg Route: IVP; Site: left antecubital; ll1 14:46 Follow up: Response: No adverse reaction ll1 14:30 Drug: morphine 4 mg {Note: rass 0, pain 9/10.} Route: IVP; Site: left antecubital; ll1 14:46 Follow up: Response: No adverse reaction ll1 Disposition Summary: 03/25/22 11:05 Hospitalization Ordered Hospitalization Status: Observation yovani Provider: Amna Betts cha Location: Telemetry/MedSurg (Inpatient) yovani Condition: Fair yovani Problem: new yovani Symptoms: have improved yovani Bed/Room Type: Standard yovani Room Assignment: 229(03/25/22 13:59) bd Diagnosis - Abdominal pain, Generalized yovani - Other cholelithiasis without obstruction yovani - Vomiting yovani - Diarrhea, unspecified yovani - Elevated white blood cell count yovani - Other specified noninfective gastroenteritis and colitis yovani - Dehydration yovani Forms: - Medication Reconciliation Form yovani - SBAR form yovani Signatures: Dispatcher [employer] EDLeslie Leo Corey, MD MD cha Hall, Patricia, RN RN Racheal Perry RN RN ll1 Corrections: (The following items were deleted from the chart) 13:59 11:05 yovani cruz
[2022-03-25] MEDS ORDERED: CIPROFLOXACIN 400mg IV 400 MG/200 ML BAG IV ONE (11:10)
[2022-03-25] MEDS ORDERED: METRONIDAZOLE 500mg IVPB 500 MG/100 ML BAG IV ONE (11:10)
[2022-03-25] MEDS ORDERED: PROMETHAZINE INJ 25 MG/ML AMP ONE ×2 (11:10→14:28)
[2022-03-25] MEDS ORDERED: MORPHINE 4 MG/ML SYR ONE ×2 (11:10→14:29)
[2022-03-25] MEDS ORDERED: ACETAMINOPHEN 500 MG TAB PO PRN (13:02)
[2022-03-25 15:38] VITALS: BMI 46.4
[2022-03-25] MEDS: NA CHLORIDE 0.9% 1,000 ML IV SCH (16:03)
[2022-03-25] MEDS: ONDANSETRON 4 MG/2 ML VIAL IV PRN ×2 (17:51→23:53)
[2022-03-25] MEDS: MORPHINE 2 MG/ML SYR IV PRN ×2 (19:54→23:53)
[2022-03-26] MEDS ORDERED: POTASSIUM 25 MEQ EFFERV TAB PO ONE (02:00)
[2022-03-26] MEDS: NA CHLORIDE 0.9% 1,000 ML IV SCH ×3 (02:23→22:54)
[2022-03-26] MEDS: MORPHINE 2 MG/ML SYR IV PRN ×5 (04:08→20:05)
[2022-03-26] MEDS: ONDANSETRON 4 MG/2 ML VIAL IV PRN ×5 (04:08→20:05)
[2022-03-26 04:12] LABS: Urine Appearance Clear (Clear); Urine Bilirubin Negative (Negative); Urine Blood Negative (Negative); Urine Color Yellow (Yellow); Urine Glucose Negative (Negative); Urine Protein Trace (Negative); Urine Specific Gravity 1.025 (1.005-1.030); Urine Urobilinogen 0.2 mg/dL (0.2-1.0); Urine pH 5.5 (5.0-7.0)
[2022-03-26 04:16] LABS: Absolute Lymphocytes (CBC) 2.6 K/uL (0.7-4.9); Hematocrit 37.3 % (36.0-45.0); MPV 6.4 fL (7.6-11.3); RBC Red Blood Cell Count 4.64 M/uL (3.86-4.86)
[2022-03-26 04:31] LABS: Albumin 3.3 g/dL (3.4-5.0); Bilirubin Total 0.6 mg/dL (0.2-1.0); Potassium 3.5 mmol/L (3.5-5.1); Protein, Total 6.1 g/dL (6.4-8.2)
[2022-03-26 04:34] LABS: Urine Microscopic Reflex ORDER UMIC
[2022-03-26 04:39] LABS: Urine Bacteria <20 /HPF (<20); Urine RBC <5 /HPF (NONE SEEN); Urine Urothelial Cells <5 /HPF (NONE SEEN)
[2022-03-27] MEDS: MORPHINE 2 MG/ML SYR IV PRN ×2 (00:02→06:34)
[2022-03-27] MEDS: ONDANSETRON 4 MG/2 ML VIAL IV PRN (00:02)
[2022-03-27] MEDS ORDERED: ZOLPIDEM TARTRATE 5 MG TABLET PO PRN (00:22)
[2022-03-27] MEDS: NA CHLORIDE 0.9% 1,000 ML IV SCH (06:00)
[2022-03-27 06:27] VITALS: O2SAT 96
--- NOTE | 2022-03-27 07:46 | EKG ---
Test Date: 2022-03-25 Test Time: 09:26:51 Director Of Technology: GRADY MEASUREMENT RESULTS: Intervals: Rate: 90 SC: 156 QRSD: 78 QT: 376 QTc: 459 [place]: P: 56 SC: 156 QRS: 7 T: 39 INTERPRETIVE STATEMENTS: Normal sinus rhythm Normal ECG Compared to ECG 07/01/2018 12:15:12 No significant changes Electronically Signed On 03-27-22 07:38:04 CDT by Skip Ordonez
--- NOTE | 2022-03-27 09:07 | P.HP ---
Certification for Inpatient Patient admitted to: Inpatient With expected LOS: >2 Midnights Patient will require the following post-hospital care: None Practitioner: I am a practitioner with admitting privileges, knowledge of patient current condition, hospital course, and medical plan of care. Services: Services provided to patient in accordance with Admission requirements found in Title 42 Section 412.3 of the Code of Federal Regulations Patient History Date of Service: 03/25/22 Reason for admission: Abdominal pain/nausea and vomiting History of Present Illness: Patient is a 56-year-old female came to the hospital with abdominal discomfort. She also has nausea and vomiting. Pain is mainly in the epigastric region. There is no radiation to the flank. No radiation to the back. Patient had some emesis as well which was mild. She has been having some pain for the last 24 hours. She will be admitted for further evaluation. CT scan showed cholelithiasis. Allergies Penicillins Allergy (Verified 03/25/22 20:12) Unknown "tequin" Allergy (Uncoded 07/01/18 16:13) Unknown Home Medications: NK [No Home Meds] 03/25/22 - Past Medical/Surgical History Has patient received pneumonia vaccine in the past: No Diabetic: No Past Medical History: Patient denies medical history -: tonsillectomy -: bladder and urethra dialation - Family History Father Family History: Reviewed- Non-Contributory - Social History Smoking Status: Former smoker Alcohol use: No CD- Drugs: No Caffeine use: Yes Place of Residence: Home Review of Systems 10-point ROS is otherwise unremarkable Physical Examination - Vital Signs Temperature: 99.8 F Blood Pressure: 116/58 Pulse: 76 Respirations: 18 Pulse Ox (%): 95 - Physical Exam General: Alert, In no apparent distress, Oriented x3 HEENT: Atraumatic, PERRLA, Mucous membr. moist/pink, EOMI, Sclerae nonicteric Neck: Supple, 2+ carotid pulse no bruit, No LAD, Without JVD or thyroid abnormality Respiratory: Clear to auscultation bilaterally, Normal air movement Cardiovascular: Regular rate/rhythm, Normal S1 S2 Gastrointestinal: Normal bowel sounds, Soft and benign, Non-distended, No tenderness, No rebound, No guarding Musculoskeletal: No clubbing, No swelling, No tenderness Integumentary: No rashes Neurological: Normal gait, Normal speech, Normal strength at 5/5 x4 extr, Normal tone, Normal affect Lymphatics: No axilla or inguinal lymphadenopathy Assessment & Plan - Problems (Diagnosis) (1) Abdominal pain Current Visit: Yes Status: Acute (2) Nausea & vomiting Current Visit: Yes Status: Acute - Plan -IV antibiotics -IV fluids -GI consultation if symptoms persist -CBC, CMP, lipase, stool cultures -Clear liquid diet -Repeat abdominal film if needed Discharge Plan: Home Plan to discharge in: Greater than 2 days - Advance Directives Does patient have a Living Will: No Does patient have a Durable POA for Healthcare: No - Code Status/Comfort Care Code Status Assessed: Yes Code Status: Full Code Critical Care: No Time Spent Managing PTS Care (In Minutes): 45
[2022-03-27 09:08] VITALS: BP 116/58; TEMP 99.8
--- NOTE | 2022-03-27 09:11 | P.PN ---
Subjective Date of Service: 03/26/22 Subjective: No new changes, No C/O voiced, Improving Review of Systems 10-point ROS is otherwise unremarkable Physical Examination - Vital Signs Temperature: 99.8 F Blood Pressure: 116/58 Pulse: 76 Respirations: 18 Pulse Ox (%): 95 - Physical Exam General: Alert, In no apparent distress, Oriented x3 HEENT: Atraumatic, PERRLA, EOMI Neck: Supple, JVD not distended Respiratory: Clear to auscultation bilaterally, Normal air movement Cardiovascular: Regular rate/rhythm, Normal S1 S2 Gastrointestinal: Soft and benign, Non-distended Musculoskeletal: No tenderness Integumentary: No rashes Neurological: Normal speech, Normal tone, Normal affect Lymphatics: No axilla or inguinal lymphadenopathy - Studies Medications List Reviewed: Yes Assessment & Plan - Problems (Diagnosis) (1) Abdominal pain Current Visit: Yes Status: Acute (2) Nausea & vomiting Current Visit: Yes Status: Acute - Plan -Start diet and advance as tolerated -IV fluids -Outpatient GI consultation -Labs are stable Discharge Plan: Home Plan to discharge in: 24 Hours - Advance Directives Does patient have a Living Will: No Does patient have a Durable POA for Healthcare: No - Code Status/Comfort Care Code Status: Full Code Critical Care: No Time Spent Managing PTS Care (In Minutes): 35
== END 2022-03-27 10:59 | disposition home or self-care (01) | DRG 446 ==
LOC: ER 08:41 → ERHOLD 13:02 → 2ND 14:39 → OBSVTOIN 21:51
PROVIDERS: ADMIT Hospitalist; ATTEND Hospitalist
DX: K80.20 Calculus of gallbladder without cholecystitis without obstruction (principal); E86.0 Dehydration; R10.9 Unspecified abdominal pain; R11.2 Nausea with vomiting, unspecified; Z88.0 Allergy status to penicillin; Z20.822 Contact with and (suspected) exposure to COVID-19
CPT/HCPCS: 36415; 71045; 74177; 76705; 80048; 80053; 80076; 81003; 81015; 83605; 83690; 83735; 83880; 84484; 85025; 85610; 87045; 87046; 87086; 87088; 93005; 99285; G0378; J0744; J2270; J2405; J2550; J3490; J7030; Q9967; U0003

== ENCOUNTER 2022-04-19 03:53 | Inpatient (IN) | payer SELFPAY ==
[2022-04-19] MEDS ORDERED: NA CHLORIDE 0.9% 1,000 ML ONE ×2 (04:49→11:55)
[2022-04-19] MEDS ORDERED: ONDANSETRON 4 MG/2 ML VIAL ONE ×3 (04:49→13:48)
[2022-04-19] MEDS ORDERED: MORPHINE 2 MG/ML SYR ONE ×2 (04:49→14:34)
[2022-04-19 05:03] LABS: Albumin 4.2 g/dL (3.4-5.0); Bilirubin Total 0.5 mg/dL (0.2-1.0); Potassium 3.7 mmol/L (3.5-5.1); Protein, Total 8.2 g/dL (6.4-8.2)
[2022-04-19 05:45] LABS: Absolute Lymphocytes (CBC) 0.6 K/uL (0.7-4.9); Lymphocytes % 4.1 % (15.3-44.8); MPV 6.8 fL (7.6-11.3); RBC Red Blood Cell Count 6.28 M/uL (3.86-4.86)
[2022-04-19] MEDS ORDERED: CEFTRIAXONE 1000 MG/VIAL ONE (05:47)
[2022-04-19] MEDS ORDERED: NA CHLORIDE 0.9% 50 ML ONE (05:47)
[2022-04-19] MEDS ORDERED: METRONIDAZOLE 500mg IVPB 500 MG/100 ML BAG IV ONE ×2 (07:05→17:11)
--- NOTE | 2022-04-19 07:43 | RAD REPORT ---
EXAM DESCRIPTION: CT - Abdomen Pelvis Wo Contrast - 04/19/2022 7:26 am CLINICAL HISTORY: Abdominal pain, acute, nonlocalized COMPARISON: Abdomen Pelvis W Contrast dated 03/25/2022 TECHNIQUE: Axial [address] imaging of the abdomen and pelvis was performed without IV contrast. No IV contrast was given because of allergy, abnormal renal function, patient refusal or physician re quest. No oral contrast administered. All CT scans are performed using dose optimization technique as appropriate and may include automated exposure control or mA/KV adjustment according to patient size. FINDINGS: No suspicious findings in the lung bases. Mild diffuse fatty infiltration of the liver is noted. No focal liver lesion on noncontrast imaging. Spleen and pancreas are unremarkable. A single 10 mm gallstone is present matching prior imaging. No gallbladder wall thickening or edema. No biliary tree abnormality. No hydronephrosis or suspicious renal mass. No significant adrenal finding. Isodense renal masses an d pyelonephritis cannot be excluded in the absence of IV contrast. The urinary bladder is without sig nificant finding. Uterus and ovaries show no suspicious findings. Fluid-filled stomach shows no wall thickening, mass or edema. No duodenal abnormality seen. Loops of jejunum are unremarkable. Most or all of the ileum shows circumferential wall thickening and edema. B owel loops are distended but not dilated. This extends to the terminal ileum. Appendix is not well de fined. No direct or indirect evidence for appendicitis. No free air, free fluid or pneumatosis. No hernia, mass or bulky lymphadenopathy. No suspicious bony findings. Due to technical malfunction, report could not medially degenerated. The small bowel findings were te lephoned to Dr. Blanchard at the time of the study. IMPRESSION: Nonspecific ileitis involving most or all of the ileum including terminal ileum. Correla tion is needed with any history of Crohn's or inflammatory bowel disease. No abscess, free air or other emergent CT finding. Fatty liver disease and cholelithiasis are present matching prior imaging. Full assessment is limited is the absence of IV contrast.
[2022-04-19] MEDS ORDERED: MORPHINE 4 MG/ML SYR ONE (08:17)
--- NOTE | 2022-04-19 08:26 | EDPHYS ---
Physician Documentation [facility] Name: Dona Gaitan Age: 56 yrs Sex: Female : 1965 Arrival Date: 04/19/2022 Time: 03:55 Bed 3 Private MD: ED Physician Edvin Blanchard HPI: 04/19 04:32 This 56 yrs old Female presents to ER via EMS with complaints of Vomiting. Diarrhea. mh7 04:32 The patient presents to the emergency department with nausea, that is moderate, mh7 vomiting, that is intermittent, described as clear fluid, diarrhea, that is intermittent, abdominal pain, of the abdomen diffusely, described as crampy, intermittent, waxing and waning, and does not radiate. Onset: The symptoms/episode began/occurred 2 day(s) ago. Possible causes: unknown. The symptoms are aggravated by nothing. The symptoms are alleviated by nothing. Associated signs and symptoms: Pertinent negatives: anorexia, belching, constipation, dysuria, fever, flatulence, GI bleeding, hematuria, vaginal discharge. Severity of symptoms: At their worst the symptoms were moderate in the emergency department the symptoms have improved mildly. 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 - Social history:: Smoking status: Patient denies any tobacco usage or history of. Patient/guardian denies using alcohol. ROS: 04:32 Constitutional: Negative for fever, chills, and weight loss, Eyes: Negative for injury, mh7 pain, redness, and discharge, ENT: Negative for injury, pain, and discharge, Neck: Negative for injury, pain, and swelling, Cardiovascular: Negative for chest pain, palpitations, and edema, Respiratory: Negative for shortness of breath, cough, wheezing, and pleuritic chest pain, Back: Negative for injury and pain, : Negative for injury, bleeding, discharge, and swelling, MS/Extremity: Negative for injury and deformity, Skin: Negative for injury, rash, and discoloration, Neuro: Negative for headache, weakness, numbness, tingling, and seizure, Psych: Negative for depression, anxiety, suicide ideation, homicidal ideation, and hallucinations, Allergy/Immunology: Negative for hives, rash, and allergies, Endocrine: Negative for neck swelling, polydipsia, polyuria, polyphagia, and marked weight changes, Hematologic/Lymphatic: Negative for swollen nodes, abnormal bleeding, and unusual bruising. Exam: 04:32 Head/Face: Normocephalic, atraumatic. Eyes: Pupils equal round and reactive to light, mh7 extra-ocular motions intact. Lids and lashes normal. Conjunctiva and sclera are non-icteric and not injected. Cornea within normal limits. Periorbital areas with no swelling, redness, or edema. Neck: Trachea midline, no thyromegaly or masses palpated, and no cervical lymphadenopathy. Supple, full range of motion without nuchal rigidity, or vertebral point tenderness. No Meningismus. Chest/axilla: Normal chest wall appearance and motion. Nontender with no deformity. No lesions are appreciated. 04:32 Respiratory: Lungs have equal breath sounds bilaterally, clear to auscultation and percussion. No rales, rhonchi or wheezes noted. No increased work of breathing, no retractions or nasal flaring. 04:32 Back: No spinal tenderness. No costovertebral tenderness. Full range of motion. Skin: Warm, dry with normal turgor. Normal color with no rashes, no lesions, and no evidence of cellulitis. MS/ Extremity: Pulses equal, no cyanosis. Neurovascular intact. Full, normal range of motion. Neuro: Awake and alert, GCS 15, oriented to person, place, time, and situation. Cranial nerves II-XII grossly intact. Motor strength 5/5 in all extremities. Sensory grossly intact. Cerebellar exam normal. Normal gait. Psych: Awake, alert, with orientation to person, place and time. Behavior, mood, and affect are within normal limits. 04:32 Constitutional: The patient appears in no acute distress, alert, awake, uncomfortable. 04:32 Cardiovascular: Rate: tachycardic, Rhythm: regular, Pulses: no pulse deficits are appreciated, Heart sounds: normal, normal S1and S2, Edema: is not appreciated, JVD: is not appreciated. 04:32 Abdomen/GI: Inspection: obese Bowel sounds: normal, in all quadrants, Palpation: moderate abdominal tenderness, in the abdomen diffusely, mass, is not appreciated, rebound tenderness, is not appreciated, voluntary guarding, is not appreciated, involuntary guarding, is not appreciated, no appreciated organomegaly, Indicators: McBurney's point is not tender, Pulliam's sign is negative, Rovsing's sign is negative, Obturator sign is negative, Psoas sign is negative, Liver: no appreciated palpable abnormalities, Hernia: not appreciated. Vital Signs: 03:55 BP 99 / 63; Pulse 114; Resp 19; Temp 98.3(O); Pulse Ox 100% on R/A; Weight 99.79 kg; sm5 Height 4 ft. 11 in. (149.86 cm); Pain 10/10; 07:17 BP 139 / 71; Pulse 100; Pulse Ox 96% on R/A; ap3 08:21 BP 144 / 94; Pulse 111; Pulse Ox 97% ; ap3 03:55 Body Mass Index 44.43 (99.79 kg, 149.86 cm) [facility] MDM: 08:25 Patient medically screened. kdr 08:25 Data reviewed: vital signs, nurses notes, lab test result(s), radiologic studies. kdr Counseling: I had a detailed discussion with the patient and/or guardian regarding: the historical points, exam findings, and any diagnostic results supporting the discharge/admit diagnosis, lab results, radiology results, the need for outpatient follow up. 10:18 ED course: Patient remained stable in the ED. I discussed with the patient her current kdr findings. She continues to have significant pain that has not been controlled by the medications previously given. Given her continued pain that is been unrelenting, we will admit her for further evaluation and treatment.. 04/19 04:25 Order name: CBC with Diff; Complete Time: 06:14 [facility] 04/19 04:25 Order name: CMP; Complete Time: 05:19 [facility] 04/19 04:25 Order name: Lipase; Complete Time: 05:19 [facility] 04/19 04:46 Order name: Blood Culture Adult (2) [facility] 04/19 04:46 Order name: Lactate; Complete Time: 06:14 [facility] 04/19 05:20 Order name: COVID-19 SARS RT PCR (Document "Date of Onset" if Symptomatic); Complete [facility] Time: 07:16 04/19 07:18 Order name: Lactate: Repeat 2 hours after initial draw kdr 04/19 09:08 Order name: Lactate Sepsis 2 HR Follow-up [facility] 04/19 09:57 Order name: Glucose, Ancillary Testing [facility] 04/19 11:06 Order name: Urinalysis [facility] 04/19 11:06 Order name: Basic Metabolic Panel [facility] 04/19 11:06 Order name: Basic Metabolic Panel [facility] 04/19 11:06 Order name: CBC with Automated Diff [facility] 04/19 11:06 Order name: CBC with Automated Diff [facility] 04/19 04:25 Order name: CT Abd/Pelvis - Without Contrast; Complete Time: 08:09 [facility] 04/19 04:25 Order name: IV Saline Lock; Complete Time: 04:38 [facility] 04/19 04:25 Order name: Labs collected and sent; Complete Time: 04:38 7 04/19 04:26 Order name: EKG; Complete Time: 04:26 [facility] 04/19 11:06 Order name: Clear Liquid [facility] 04/19 11:06 Order name: Magnesium [facility] 04/19 11:06 Order name: Magnesium [facility] 04/19 14:43 Order name: Lactate Sepsis 2 HR Follow-up [facility] 04/19 04:26 Order name: EKG - Nurse/Tech; Complete Time: 04:44 mh7 Administered Medications: 04:51 Drug: NS 0.9% 1000 ml Route: IV; Rate: 1 bolus; Site: left antecubital; kd3 04:51 Drug: morphine 2 mg Route: IVP; Infused Over: 4 mins; Site: left antecubital; kd3 04:52 Drug: Zofran (Ondansetron) 4 mg Route: IVP; Site: left antecubital; kd3 05:46 Drug: Rocephin (cefTRIAXone) 1 grams Route: IV; Rate: per protocol; Site: left sm5 antecubital; 07:01 Drug: Flagyl (metroNIDAZOLE) 500 mg Volume: 100 ml; Route: IVPB; Rate: 200 ml/hr; sm5 Infused Over: 30 mins; Site: left antecubital; 08:19 Drug: morphine 4 mg Route: IVP; Infused Over: 4 mins; Site: left antecubital; ap3 08:19 Drug: Zofran (Ondansetron) 4 mg Route: IVP; Site: left antecubital; ap3 Disposition Summary: 04/19/22 08:25 Hospitalization Ordered Hospitalization Status: Inpatient Admission kdr Provider: Amor William Location: Telemetry/MedSurg (Inpatient) kdr Condition: Fair kdr Problem: new kdr Symptoms: have improved kdr Bed/Room Type: Standard kdr Room Assignment: 216(04/19/22 18:40) eb Diagnosis - Abdominal pain, Generalized kdr - Ileitis kdr - Nausea with vomiting, unspecified kdr - Diarrhea, unspecified kdr Forms: - Medication Reconciliation Form kdr - SBAR form kdr Signatures: Dispatcher [employer] EDMS Edvin Blanchard MD MD kdr Maritza Mcguire RN RN ap3 Jen Allen Maurice, MD MD 7 Parris Garrison RN RN kd3 Ashley Duran RN RN sm5 Corrections: (The following items were deleted from the chart) 18:40 08:25 kdr eb
--- NOTE | 2022-04-19 08:26 | ER ---
Nurse's Notes [facility] Name: Dona Gaitan Age: 56 yrs Sex: Female : 1965 Arrival Date: 04/19/2022 Time: 03:55 Bed 3 Private MD: Diagnosis: Abdominal pain, Generalized;Ileitis;Nausea with vomiting, unspecified;Diarrhea, unspecified Presentation: 04/19 03:55 Chief complaint: EMS states: pt has been having abd pain, N/V/D for a couple days now, sm5 unable to eat due to it. BGL on ems arrival was 38. D10 and zofran given. Coronavirus screen: Vaccine status: Patient reports receiving the 2nd dose of the covid vaccine. Ebola Screen: No symptoms or risks identified at this time. Initial Sepsis Screen: Does the patient meet any 2 criteria? HR > 90 bpm. No. Patient's initial sepsis screen is negative. Does the patient have a suspected source of infection? Yes: Acute abdominal pain. Risk Assessment: Do you want to hurt yourself or someone else? Patient reports no desire to harm self or others. Onset of symptoms was April 17, 2022. 03:55 Method Of Arrival: EMS [facility] 03:55 Acuity: JIE 3 sm5 Triage Assessment: 03:57 General: Appears in no apparent distress. Behavior is cooperative. Pain: Complains of sm5 pain in abdomen. Neuro: No deficits noted. Arthur Agitation-Sedation Scale (RASS): 0 - Alert and Calm Level of Consciousness is awake, alert, obeys commands, Oriented to person, place, time, situation. Cardiovascular: Capillary refill < 3 seconds Patient's skin is warm and dry. Rhythm is sinus tachycardia. Respiratory: No deficits noted. Airway is patent Trachea midline Respiratory effort is even, unlabored. GI: Abdomen is obese, Reports diarrhea, nausea, vomiting. 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 - Social history:: Smoking status: Patient denies any tobacco usage or history of. Patient/guardian denies using alcohol. Screenin:58 Abuse screen: Denies threats or abuse. Denies injuries from another. Nutritional [facility] screening: No deficits noted. Tuberculosis screening: No symptoms or risk factors identified. Fall Risk None identified. Assessment: 04:15 Reassessment: see triage assessment. [facility] 06:03 Reassessment: Lactate 4.8. vc1 08:19 Reassessment: Patient and/or family updated on plan of care and expected duration. Pain ap3 level reassessed. Patient is alert, oriented x 3, equal unlabored respirations, skin warm/dry/pink. Pain: Complains of pain in umbilical area Pain radiates to abdomen. Neuro: Level of Consciousness is awake, alert, obeys commands, Oriented to person, place, time, situation, Appropriate for age Speech is normal. GI: Reports lower abdominal pain, upper abdominal pain, nausea. 20:08 Reassessment: attempted report to floor, nurse unavailable. [facility] Vital Signs: 03:55 BP 99 / 63; Pulse 114; Resp 19; Temp 98.3(O); Pulse Ox 100% on R/A; Weight 99.79 kg; 5 Height 4 ft. 11 in. (149.86 cm); Pain 10/10; 07:17 BP 139 / 71; Pulse 100; Pulse Ox 96% on R/A; ap3 08:21 BP 144 / 94; Pulse 111; Pulse Ox 97% ; ap3 03:55 Body Mass Index 44.43 (99.79 kg, 149.86 cm) [facility] ED Course: 03:55 Patient arrived in ED. 5 03:56 Ole Diop MD is Attending Physician. [facility] 03:57 Triage completed. 5 03:57 Arm band placed on right wrist. 5 03:58 Patient has correct armband on for positive identification. Bed in low position. Call [facility] light in reach. Side rails up X2. 04:14 Parris Garrison RN is Primary Nurse. kd3 04:38 CBC with Diff Sent. sm5 04:38 CMP Sent. sm5 04:38 Lipase Sent. sm5 04:38 Maintain EMS IV. Dressing intact. Good blood return noted. Site clean \\T\\ dry. Gauge \\T\\ 5 site: 20G L AC. 05:46 COVID-19 SARS RT PCR (Document "Date of Onset" if Symptomatic) Sent. sm5 06:49 CT Abd/Pelvis - Without Contrast In Process Unspecified. EDMS 07:13 Attending Physician role handed off by Ole Diop MD kdr 07:13 Edvin Blanchard MD is Attending Physician. kdr 08:19 ED physician to see patient. ap3 08:24 Amor William MD is Hospitalizing Provider. kdr 10:32 No provider procedures requiring assistance completed. Patient admitted, IV remains in ap3 place. 19:18 role handed off by Maritza Mcguire RN eb Administered Medications: 04:51 Drug: NS 0.9% 1000 ml Route: IV; Rate: 1 bolus; Site: left antecubital; kd3 04:51 Drug: morphine 2 mg Route: IVP; Infused Over: 4 mins; Site: left antecubital; kd3 04:52 Drug: Zofran (Ondansetron) 4 mg Route: IVP; Site: left antecubital; kd3 05:46 Drug: Rocephin (cefTRIAXone) 1 grams Route: IV; Rate: per protocol; Site: left sm5 antecubital; 07:01 Drug: Flagyl (metroNIDAZOLE) 500 mg Volume: 100 ml; Route: IVPB; Rate: 200 ml/hr; sm5 Infused Over: 30 mins; Site: left antecubital; 08:19 Drug: morphine 4 mg Route: IVP; Infused Over: 4 mins; Site: left antecubital; ap3 08:19 Drug: Zofran (Ondansetron) 4 mg Route: IVP; Site: left antecubital; ap3 Medication: 10:32 VIS not applicable for this client. ap3 Outcome: 08:25 Decision to Hospitalize by Provider. kdr 10:32 Admitted to ER Hold. [facility]. ap3 10:32 Condition: stable 10:32 Instructed on the need for admit. 21:00 Patient left the ED. 5 Signatures: Dispatcher [employer] EDMS Edvin Blanchard MD MD kdr Maritza Mcguire RN RN ap3 Jen Allen Ole Diop MD MD [facility] Parris Garrison RN RN kd3 Roger, Ashley, RN RN sm5 Calcote, Gretchen, RN RN vc1
[2022-04-19] MEDS: NA CHLORIDE 0.9% 1,000 ML IV SCH (11:00)
[2022-04-19] MEDS: INSULIN -REGULAR HUMAN 50 UNIT/0.5 ML ML SQ SCH ×3 (11:30→21:00)
[2022-04-19 11:41] VITALS: O2SAT 98; BMI 44.4
--- NOTE | 2022-04-19 13:29 | P.HP ---
Certification for Inpatient Patient admitted to: Inpatient With expected LOS: >2 Midnights Practitioner: I am a practitioner with admitting privileges, knowledge of patient current condition, hospital course, and medical plan of care. Services: Services provided to patient in accordance with Admission requirements found in Title 42 Section 412.3 of the Code of Federal Regulations Patient History Date of Service: 04/19/22 Reason for admission: Colitis, ileitis History of Present Illness: 56-year-old female patient was history of recurrent abdominal discomfort and was recently admitted for management of suspected colitis in March 2022. At that time she was discharged with no significant finding after work-up for enteric pathogen was negative. She also had a C. difficile test which was negative. She was discharged on oral Levaquin and Flagyl however she comes back to the emergency room today with complaint of abdominal pain with associated nausea and diarrhea. CT of the abdomen done revealed adenitis which is nonspecific and there was concern for suspicion for Crohn's disease. She has elevated creatinine of 1.95 and elevated white cell. She was also found to have elevated lactic acid and she was gently volume depleted and sepsis. She was put into the acute medicine service after IV hydration and antibiotics were started. Cultures were taken to rule out underlying septic condition. Allergies Penicillins Allergy (Verified 03/25/22 20:12) Unknown "tequin" Allergy (Uncoded 07/01/18 16:13) Unknown Home Medications: Hydrocodone 7.5/APAP 325 [Brice 7.5/325 mg] 1 tab PO Q6H PRN #20 tab 03/27/22 Ondansetron [Zofran] 4 mg PO Q6H PRN #20 tab 03/27/22 levoFLOXacin [Levaquin] 500 mg PO DAILY #7 tab 03/27/22 metroNIDAZOLE [Flagyl] 500 mg PO Q8H #20 tablet 03/27/22 - Past Medical/Surgical History Diabetic: No -: tonsillectomy -: bladder and urethra dialation - Social History Smoking Status: Never smoker Alcohol use: No CD- Drugs: No Caffeine use: Yes Place of Residence: Home Review of Systems General: Weakness, Malaise Eyes: Unremarkable ENT: Unremarkable Respiratory: Unremarkable Cardiovascular: Unremarkable Gastrointestinal: Nausea, Abdominal Pain, Diarrhea Genitourinary: Unremarkable Musculoskeletal: Unremarkable Integumentary: Unremarkable Neurological: Unremarkable Physical Examination - Vital Signs Temperature: 98.3 F Blood Pressure: 125/79 Pulse: 102 Respirations: 18 Pulse Ox (%): 98 - Physical Exam General: Alert, Oriented x3 HEENT: Atraumatic, Normocephalic Neck: Supple Respiratory: Normal air movement Cardiovascular: Regular rate/rhythm, Normal S1 S2 Gastrointestinal: Tenderness Neurological: Normal speech - Studies Laboratory Data (last 24 hrs) 04/19/22 05:23: WBC 14.2 H, Hgb 16.4 H, Hct 51.0 H, Plt Count 375 04/19/22 04:35: Sodium 140, Potassium 3.7, BUN 14, Creatinine 1.95 H, Glucose 221 H, Total Bilirubin 0.5, AST 24, ALT 54, Alkaline Phosphatase 127 H, Lipase 187 Microbiology Data (last 24 hrs): 04/19/22 05:29 Blood - Blood Anaerobic Blood Culture - Final Assessment and Plan - Plan Colitis/Ileitis: There is recurrent episode of this infection and there is concerns for Crohn's disease. Will have cutter hand evaluate patient. Continue empiric antibiotic of ciprofloxacin and Flagyl pending further review. Will continue supportive care with IV fluid. Will continue pain control. Sepsis: Present on admission. Evidenced by lactic acidemia. Continue empiric antibiotic and IV hydration and blood. Will monitor lactic acid reflexively. Acute kidney injury: Creatinine is elevated 1.95. This is deemed secondary to volume loss from diarrhea. Will hydrate and monitor closely. Prophylaxis: Renally dosed Lovenox for DVT prophylaxis. CODE STATUS: Full code Disposition: Pending resolution of colitis episode - Advance Directives Does patient have a Living Will: No Does patient have a Durable POA for Healthcare: No
[2022-04-19] MEDS: ONDANSETRON 4 MG/2 ML VIAL IV PRN ×2 (13:46→21:17)
[2022-04-19] MEDS: MORPHINE 2 MG/ML SYR IV PRN ×2 (14:31→21:17)
[2022-04-19] MEDS: METRONIDAZOLE 500mg IVPB 500 MG/100 ML BAG IV SCH (17:00)
[2022-04-19] MEDS: CIPROFLOXACIN 400mg IV 400 MG/200 ML BAG IV SCH (21:16)
[2022-04-20] MEDS: ONDANSETRON 4 MG/2 ML VIAL IV PRN ×6 (00:56→21:29)
[2022-04-20] MEDS: MORPHINE 2 MG/ML SYR IV PRN ×6 (00:56→21:29)
[2022-04-20] MEDS: METRONIDAZOLE 500mg IVPB 500 MG/100 ML BAG IV SCH ×3 (00:58→17:46)
[2022-04-20 00:59] LABS: Urine Appearance TURBID (Clear); Urine Bilirubin Negative (Negative); Urine Blood Negative (Negative); Urine Color Yellow (Yellow); Urine Glucose Negative (Negative); Urine Protein 1+ (Negative); Urine Specific Gravity >=1.030 (1.005-1.030); Urine Urobilinogen 0.2 mg/dL (0.2-1.0)
[2022-04-20 01:19] LABS: Urine Microscopic Reflex ORDER UMIC
[2022-04-20 01:21] LABS: Urine Amorphous Sediment 3+ /HPF (NONE SEEN); Urine Bacteria <20 /HPF (<20); Urine RBC NONE SEEN /HPF (NONE SEEN)
[2022-04-20] MEDS: NA CHLORIDE 0.9% 1,000 ML IV SCH ×3 (04:59→17:46)
[2022-04-20 06:34] LABS: Potassium 3.6 mmol/L (3.5-5.1)
[2022-04-20 07:17] LABS: Absolute Lymphocytes (CBC) 1.9 K/uL (0.7-4.9); Hematocrit 39.9 % (36.0-45.0); Lymphocytes % 16.6 % (15.3-44.8); MPV 6.6 fL (7.6-11.3); RBC Red Blood Cell Count 5.02 M/uL (3.86-4.86)
[2022-04-20] MEDS: INSULIN -REGULAR HUMAN 50 UNIT/0.5 ML ML SQ SCH ×4 (07:30→21:00)
[2022-04-20] MEDS ORDERED: KCL 20 MEQ/100 mL IVPB 20 MEQ/100 ML BAG IV SCH (08:00)
[2022-04-20] MEDS: ENOXAPARIN 40 MG/0.4 ML SQ SCH (08:55)
[2022-04-20 13:43] LABS: C.diff Antigen/Toxin Ag neg : Tox neg (NEG : NEG)
--- NOTE | 2022-04-20 13:58 | P.PN ---
Subjective Date of Service: 04/20/22 Chief Complaint: Colitis, ileitis Subjective: No new changes, Improving Physical Examination - Vital Signs Temperature: 97.0 F Blood Pressure: 136/63 Pulse: 83 Respirations: 18 Pulse Ox (%): 98 - Physical Exam General: Alert, Oriented x3 HEENT: Atraumatic, Normocephalic Neck: Supple Respiratory: Normal air movement Cardiovascular: Regular rate/rhythm, Normal S1 S2 Gastrointestinal: Soft and benign Musculoskeletal: No swelling Neurological: Normal speech - Studies Microbiology Data (last 24 hrs): 04/19/22 05:29 Blood - Blood Anaerobic Blood Culture - Final Assessment And Plan - Plan Colitis/Ileitis: There is recurrent episode of this infection and there is concerns for Crohn's disease. Will have utilization management um nurse evaluate patient. Continue empiric antibiotic of ciprofloxacin and Flagyl pending further review. Will continue supportive care with IV fluid. Will continue pain control. Sepsis: Present on admission. Evidenced by lactic acidemia. Continue empiric antibiotic and IV hydration and blood. Will monitor lactic acid reflexively. Acute kidney injury: Resolving. Creatinine is better today at 1.23. This is deemed secondary to volume loss from diarrhea. Will hydrate and monitor closely. Prophylaxis: Renally dosed Lovenox for DVT prophylaxis. CODE STATUS: Full code Disposition: Pending resolution of colitis episode
[2022-04-20] MEDS: CIPROFLOXACIN 400mg IV 400 MG/200 ML BAG IV SCH (20:22)
[2022-04-21] MEDS: METRONIDAZOLE 500mg IVPB 500 MG/100 ML BAG IV SCH ×3 (00:36→17:18)
[2022-04-21] MEDS: MORPHINE 2 MG/ML SYR IV PRN ×6 (01:31→21:17)
[2022-04-21] MEDS: ONDANSETRON 4 MG/2 ML VIAL IV PRN ×6 (01:31→21:17)
[2022-04-21] MEDS: NA CHLORIDE 0.9% 1,000 ML IV SCH ×4 (03:00→23:00)
[2022-04-21 04:24] LABS: Potassium 3.5 mmol/L (3.5-5.1)
[2022-04-21] MEDS ORDERED: POTASSIUM 25 MEQ EFFERV TAB PO ONE (05:18)
[2022-04-21] MEDS: INSULIN -REGULAR HUMAN 50 UNIT/0.5 ML ML SQ SCH ×4 (07:30→21:00)
[2022-04-21] MEDS: ENOXAPARIN 40 MG/0.4 ML SQ SCH (09:22)
[2022-04-21] MEDS ORDERED: HYDROCORTISONE SUC 100 MG INJ IV ONE (10:55)
--- NOTE | 2022-04-21 13:39 | EKG ---
Test Date: 2022-04-19 Test Time: 04:39:38 Door Frame Builder: SEUN MEASUREMENT RESULTS: Intervals: Rate: 123 NM: 148 QRSD: 74 QT: 318 QTc: 455 [place]: P: 47 NM: 148 QRS: 15 T: 51 INTERPRETIVE STATEMENTS: Sinus tachycardia Otherwise normal ECG Compared to ECG 03/25/2022 09:26:51 Sinus rhythm no longer present Electronically Signed On 04-21-22 13:35:44 CDT by Eddi Vieyra
[2022-04-21] MEDS: METHYLPREDNISOLONE 125 MG INJ IV SCH (17:18)
[2022-04-21] MEDS ORDERED: ZOLPIDEM TARTRATE 5 MG TABLET PO PRN (19:44)
[2022-04-21] MEDS: CIPROFLOXACIN 400mg IV 400 MG/200 ML BAG IV SCH (21:16)
[2022-04-22] MEDS: METHYLPREDNISOLONE 125 MG INJ IV SCH ×2 (02:03→08:06)
[2022-04-22] MEDS: METRONIDAZOLE 500mg IVPB 500 MG/100 ML BAG IV SCH ×2 (02:03→08:06)
[2022-04-22] MEDS: ONDANSETRON 4 MG/2 ML VIAL IV PRN ×2 (02:04→05:42)
[2022-04-22] MEDS: MORPHINE 2 MG/ML SYR IV PRN ×2 (02:04→05:42)
[2022-04-22 05:22] LABS: Potassium 3.7 mmol/L (3.5-5.1)
[2022-04-22] MEDS: INSULIN -REGULAR HUMAN 50 UNIT/0.5 ML ML SQ SCH (07:30)
[2022-04-22] MEDS: KCL 20 MEQ/100 mL IVPB 20 MEQ/100 ML BAG IV SCH ×2 (08:06→09:00)
[2022-04-22] MEDS: ENOXAPARIN 40 MG/0.4 ML SQ SCH (08:06)
[2022-04-22] MEDS: NA CHLORIDE 0.9% 1,000 ML IV SCH (08:07)
[2022-04-22 09:50] VITALS: BP 115/59; TEMP 97.2
== END 2022-04-22 10:57 | disposition home or self-care (01) | DRG 872 ==
LOC: ER 03:53 → ERHOLD 11:01 → 2ND 20:38
PROVIDERS: ADMIT Internal Medicine Nephrology; ATTEND Internal Medicine Nephrology
DX: A41.9 Sepsis, unspecified organism (principal); N17.9 Acute kidney failure, unspecified; K52.9 Noninfective gastroenteritis and colitis, unspecified; Z88.0 Allergy status to penicillin; E86.9 Volume depletion, unspecified; Z20.822 Contact with and (suspected) exposure to COVID-19
CPT/HCPCS: 36415; 74176; 80048; 80053; 81003; 81015; 82947; 83605; 83690; 83735; 84100; 85025; 87040; 87086; 87088; 87324; 87449; 93005; 96374; 96375; 99285; J0744; J1650; J2270; J2405; J2930; J3480; J3490; J7030; U0003

== ENCOUNTER 2022-06-04 02:49 | Emergency (ER) | payer OTHER ==
[2022-06-04] MEDS ORDERED: ONDANSETRON 4 MG/2 ML VIAL ONE ×3 (05:03→10:58)
[2022-06-04] MEDS ORDERED: MORPHINE 4 MG/ML SYR ONE ×3 (05:03→10:58)
[2022-06-04] MEDS ORDERED: NA CHLORIDE 0.9% 1,000 ML ONE ×2 (05:04→10:01)
[2022-06-04 05:18] LABS: Absolute Lymphocytes (CBC) 1.3 K/uL (0.7-4.9); Hematocrit 44.1 % (36.0-45.0); Lymphocytes % 9.2 % (15.3-44.8); MCV 79.8 fL (80-100); RBC Red Blood Cell Count 5.53 M/uL (3.86-4.86)
[2022-06-04] MEDS ORDERED: FAMOTIDINE 20 MG/2 ML VIAL IV ONE (05:18)
[2022-06-04 05:28] LABS: Bilirubin Total 0.5 mg/dL (0.2-1.0); Potassium 4.1 mmol/L (3.5-5.1)
--- NOTE | 2022-06-04 09:27 | EDPHYS ---
Physician Documentation [facility] Name: Dona Gaitan Age: 56 yrs Sex: Female : 1965 Arrival Date: 06/04/2022 Time: 03:09 Bed 9 Private MD: ED Physician Mitchell Matson HPI: 06/04 09:16 This 56 yrs old Female presents to ER via EMS with complaints of abdominal yovani pain, vomiting. 09:16 The patient presents with abdominal pain. 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 - Social history:: Smoking status: Patient denies any tobacco usage or history of. ROS: 09:18 Constitutional: Negative for fever, chills, and weight loss, Eyes: Negative for injury, yovani pain, redness, and discharge, ENT: Negative for injury, pain, and discharge, Neck: Negative for injury, pain, and swelling, Cardiovascular: Negative for chest pain, palpitations, and edema, Respiratory: Negative for shortness of breath, cough, wheezing, and pleuritic chest pain, Back: Negative for injury and pain, : Negative for injury, bleeding, discharge, and swelling, MS/Extremity: Negative for injury and deformity, Skin: Negative for injury, rash, and discoloration, Neuro: Negative for headache, weakness, numbness, tingling, and seizure, Psych: Negative for depression, anxiety, suicide ideation, homicidal ideation, and hallucinations, Allergy/Immunology: Negative for hives, rash, and allergies, Endocrine: Negative for neck swelling, polydipsia, polyuria, polyphagia, and marked weight changes. 09:18 Abdomen/GI: Positive for abdominal pain, nausea and vomiting, diarrhea, of the right upper quadrant and left upper quadrant. Exam: 09:18 Constitutional: This is a well developed, well nourished patient who is awake, alert, yovani and in no acute distress. Head/Face: Normocephalic, atraumatic. Eyes: Pupils equal round and reactive to light, extra-ocular motions intact. Lids and lashes normal. Conjunctiva and sclera are non-icteric and not injected. Cornea within normal limits. Periorbital areas with no swelling, redness, or edema. ENT: Nares patent. No nasal discharge, no septal abnormalities noted. Tympanic membranes are normal and external auditory canals are clear. Oropharynx with no redness, swelling, or masses, exudates, or evidence of obstruction, uvula midline. Mucous membranes moist. Neck: Trachea midline, no thyromegaly or masses palpated, and no cervical lymphadenopathy. Supple, full range of motion without nuchal rigidity, or vertebral point tenderness. No Meningismus. Chest/axilla: Normal chest wall appearance and motion. Nontender with no deformity. No lesions are appreciated. Cardiovascular: Regular rate and rhythm with a normal S1 and S2. No gallops, murmurs, or rubs. Normal PMI, no JVD. No pulse deficits. Respiratory: Lungs have equal breath sounds bilaterally, clear to auscultation and percussion. No rales, rhonchi or wheezes noted. No increased work of breathing, no retractions or nasal flaring. Back: No spinal tenderness. No costovertebral tenderness. Full range of motion. Skin: Warm, dry with normal turgor. Normal color with no rashes, no lesions, and no evidence of cellulitis. MS/ Extremity: Pulses equal, no cyanosis. Neurovascular intact. Full, normal range of motion. Neuro: Awake and alert, GCS 15, oriented to person, place, time, and situation. Cranial nerves II-XII grossly intact. Motor strength 5/5 in all extremities. Sensory grossly intact. Cerebellar exam normal. Normal gait. Psych: Awake, alert, with orientation to person, place and time. Behavior, mood, and affect are within normal limits. 09:18 Abdomen/GI: Inspection: distension, Bowel sounds: normal, Palpation: soft, mild abdominal tenderness, in the epigastric area, right upper quadrant and left upper quadrant. Vital Signs: 03:10 BP 118 / 77; Pulse 68; Resp 20; Temp 98.3(TE); Pulse Ox 98% ; Weight 113.4 kg; Height 5 bh1 ft. 5 in. (165.10 cm); Pain 8/10; 05:27 BP 122 / 72; Pulse 92; Resp 20; Pulse Ox 98% on R/A; 1 07:11 BP 122 / 73; Pulse 78; Resp 20; Pulse Ox 100% on R/A; 1 03:10 Body Mass Index 41.60 (113.40 kg, 165.10 cm) [facility] MDM: 07:43 Patient medically screened. [facility] 09:22 Differential diagnosis: Nonspecific abd pain, gastritis, cholecystitis, pancreatitis, yovani diverticulitis, viral gastroenteritis, gastroenteritis, bowel obstruction, Cholelithiasis, diverticulitis, gastritis, Mesenteric ischemia or infarction, non-specific abd pain, pancreatitis, Peptic Ulcer Disease, Ureterolithiasis, urinary tract infection. Data reviewed: vital signs, nurses notes, lab test result(s), radiologic studies, CT scan. Data interpreted: property assessment monitor: rate is 78 beats/min, rhythm is regular. Counseling: I had a detailed discussion with the patient and/or guardian regarding: the historical points, exam findings, and any diagnostic results supporting the discharge/admit diagnosis, lab results, radiology results, the need for outpatient follow up, for definitive care, a family practitioner, a health care law specialist. 06/04 06:01 Order name: CBC with Automated Diff; Complete Time: 09:07 [facility] 06/04 06:01 Order name: Comprehensive Metabolic Panel; Complete Time: 09:07 [facility] 06/04 06:01 Order name: Lipase; Complete Time: 09: [facility] 06/04 04:56 Order name: CT Abd/Pelvis - IV Contrast Only kdr 06/04 03:22 Order name: IV Saline Lock; Complete Time: 03:31 kdr 06/04 03:22 Order name: Labs collected and sent; Complete Time: 03:31 kdr Administered Medications: 05:03 Drug: NS 0.9% 1000 ml Route: IV; Rate: 1 bolus; Site: right hand; [facility] 06:40 Follow up: IV Status: Completed infusion; IV Intake: 1000ml [facility] 05:04 Drug: morphine 4 mg Route: IVP; Infused Over: 4 mins; Site: right hand; 1 05:04 Follow up: Response: No adverse reaction [facility] 05:04 Drug: Zofran (Ondansetron) 4 mg Route: IVP; Site: right hand; 1 05:04 Follow up: Response: No adverse reaction bh1 05:26 Drug: Pepcid (famotidine) 20 mg Route: IVP; Site: left femoral; bh1 05:26 Follow up: Response: No adverse reaction 1 07:11 Drug: morphine 4 mg Route: IVP; Infused Over: 4 mins; Site: left forearm; bh1 07:11 Follow up: Response: No adverse reaction 1 07:11 Drug: Zofran (Ondansetron) 4 mg Route: IVP; Site: left forearm; 1 07:11 Follow up: Response: No adverse reaction 1 09:23 CANCELLED (Duplicate Order): Cipro (ciprofloxacin) 400 mg 200 ml IVPB once over 60 mins yovani 10:04 Drug: NS 0.9% 1000 ml Route: IV; Rate: 1 bolus; Site: left forearm; iw 10:04 Drug: Flagyl (metroNIDAZOLE) 500 mg Volume: 100 ml; Route: IVPB; Rate: 200 ml/hr; iw Infused Over: 30 mins; Site: left forearm; 10:04 Drug: Cipro (ciprofloxacin) 500 mg Route: PO; iw 10:04 Drug: SOLU-Medrol (methylPrednisoLONE) 125 mg Route: IVP; Site: left forearm; iw 10:45 Drug: morphine 4 mg Route: IVP; Infused Over: 4 mins; Site: left forearm; iw 10:45 Drug: Zofran (Ondansetron) 4 mg Route: IVP; Site: left forearm; iw Disposition Summary: 06/04/22 09:26 Discharge Ordered Location: Home yovani Problem: new yovani Symptoms: have improved yovani Condition: Stable yovani Diagnosis - Vomiting yovani - Diarrhea, unspecified yovani - Abdominal tenderness yovani - Other specified noninfective gastroenteritis and colitis - hx of Chrons yovani Followup: yovani - With: Private Physician - When: 2 - 3 days - Reason: Recheck today's complaints, Continuance of care, Re-evaluation by your physician Followup: yovani - With: Nadia Pascual MD - When: 2 - 3 days - Reason: Recheck today's complaints, Continuance of care, Re-evaluation by your physician Discharge Instructions: - Discharge Summary Sheet yovani - Abdominal Pain, Adult yovani - Food Choices to Help Relieve Diarrhea, Adult yovani - Diarrhea, Adult yovani - Abdominal Pain, Adult, [id number] yovani - Crohn's Disease yovani - Diarrhea, Adult, [id number] yovani - Vomiting, Adult [facility] Forms: - Medication Reconciliation Form [facility] - Thank You Letter [facility] - Antibiotic Education [facility] - Prescription Opioid Use [facility] Prescriptions: - Cipro 500 mg Oral Tablet - take 1 tablet by ORAL route every 12 hours for 7 days; 14 tablet; Refills: 0, [facility] Product Selection Permitted - Flagyl 500 mg Oral Tablet - take 1 tablet by ORAL route every 12 hours for 7 days; 14 tablet; Refills: 0, [facility] Product Selection Permitted - Pepcid 20 mg Oral Tablet - take 1 tablet by ORAL route every 12 hours for 10 days; 20 tablet; Refills: 0, [facility] Product Selection Permitted - Zofran 4 mg Oral Tablet - take 1 tablet by ORAL route every 12 hours As needed; 20 tablet; Refills: 0, [facility] Product Selection Permitted - Medrol (Tom) 4 mg Oral Tablets, Dose Pack - take 1 tablet by ORAL route as directed - follow package instructions; 1 yovani packet; Refills: 0, Product Selection Permitted - promethazine 25 mg Oral Tablet - take 1 tablet by ORAL route every 6 hours As needed; 20 tablet; Refills: 0, [facility] Product Selection Permitted - dicyclomine 20 mg Oral Tablet - take 1 tablet by ORAL route 4 times per day; 28 tablet; Refills: 0, Product yovani Selection Permitted - Tylenol-Codeine #3 300 mg-30 mg Oral - take 2 tablet by ORAL route every 6 hours; 15 tablet; Refills: 0, Product yovani Selection Permitted Signatures: Dispatcher [employer] EDMitchell Ward MD MD cha Rittger, Kevin, MD MD kdr Williams, Irene, RN RN Leslie Marin RN RN [facility] Corrections: (The following items were deleted from the chart) 08:10 06:02 CBC+H.LAB.BRZ ordered. EDMS EDMS 08:10 06:02 COMPREHENSIVE METABOLIC PANEL+C.LAB.BRZ ordered. EDMS EDMS 08:10 06:02 LIPASE+C.LAB.BRZ ordered. EDMS EDMS 09:23 09:18 Cipro (ciprofloxacin) 400 mg 200 ml IVPB once over 60 mins ordered. [facility] yovani
--- NOTE | 2022-06-04 09:27 | ER ---
Nurse's Notes [facility] Name: Dona Gaitan Age: 56 yrs Sex: Female : 1965 Arrival Date: 06/04/2022 Time: 03:09 Bed 9 Private MD: Diagnosis: Vomiting;Diarrhea, unspecified;Abdominal tenderness;Other specified noninfective gastroenteritis and colitis-hx of Chrons Presentation: 06/04 03:10 Chief complaint: Patient states: abdominal pain and vomiting. Coronavirus screen: [facility] Vaccine status: Patient reports receiving the 2nd dose of the covid vaccine. At this time, the client does not indicate any symptoms associated with coronavirus-19. Ebola Screen: Patient negative for fever greater than or equal to 101.5 degrees Fahrenheit, and additional compatible Ebola Virus Disease symptoms. Initial Sepsis Screen: Does the patient meet any 2 criteria? No. Patient's initial sepsis screen is negative. Does the patient have a suspected source of infection? No. Patient's initial sepsis screen is negative. Risk Assessment: Do you want to hurt yourself or someone else? Patient reports no desire to harm self or others. Onset of symptoms was June 04, 2022. 03:10 Method Of Arrival: EMS: [facility] 03:10 Acuity: JIE 3 [facility] Triage Assessment: 03:28 General: Appears in no apparent distress. Behavior is calm, cooperative, appropriate [facility] for age. Pain: Complains of pain in abdomen. 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 - Social history:: Smoking status: Patient denies any tobacco usage or history of. Screenin:30 Abuse screen: Denies threats or abuse. Nutritional screening: No deficits noted. [facility] Tuberculosis screening: No symptoms or risk factors identified. Fall Risk None identified. Assessment: 03:30 Reassessment: No changes from previously documented assessment. [facility] 11:36 Reassessment: Patient appears in no apparent distress at this time. Patient and/or iw family updated on plan of care and expected duration. Pain level reassessed. Patient is alert, oriented x 3, equal unlabored respirations, skin warm/dry/pink. pt does not have a ride home at this time, requesting a taxi voucher, states she has a brother that can pick her up after 4:00. 13:01 Reassessment: Patient appears in no apparent distress at this time. Patient and/or iw family updated on plan of care and expected duration. Pain level reassessed. Patient is alert, oriented x 3, equal unlabored respirations, skin warm/dry/pink. pt ride is here , ambulated to ER lobby with steady gait , NAD, no pain. Vital Signs: 03:10 BP 118 / 77; Pulse 68; Resp 20; Temp 98.3(TE); Pulse Ox 98% ; Weight 113.4 kg; Height 5 bh1 ft. 5 in. (165.10 cm); Pain 8/10; 05:27 BP 122 / 72; Pulse 92; Resp 20; Pulse Ox 98% on R/A; bh1 07:11 BP 122 / 73; Pulse 78; Resp 20; Pulse Ox 100% on R/A; bh1 03:10 Body Mass Index 41.60 (113.40 kg, 165.10 cm) 1 ED Course: 03:09 Patient arrived in ED. bp1 03:21 Edvin Blanchard MD is Attending Physician. kdr 03:26 Leslie Marin, ROXIE is Primary Nurse. bh1 03:28 Triage completed. bh1 03:28 Arm band placed on right wrist. bh1 03:30 No apparent distress. Awaiting lab results, Awaiting CT Scan. bh1 03:30 Patient has correct armband on for positive identification. bh1 03:30 No provider procedures requiring assistance completed. Inserted saline lock: 22 gauge bh1 in right hand, using aseptic technique. Blood collected. 05:26 Inserted saline lock: 20 gauge in left forearm, using aseptic technique. bh1 05:[address] bh1 06:19 CT Abd/Pelvis - IV Contrast Only In Process Unspecified. EDMS 07:43 Attending Physician role handed off by Edvin Blanchard MD yovani 07:43 Mitchell Matson MD is Attending Physician. yovani 09:26 Nadia Pascual MD is Referral Physician. yovani 12:00 Assisted to bathroom. kc6 13:01 IV discontinued, intact, bleeding controlled, No redness/swelling at site. Pressure iw dressing applied. Administered Medications: 05:03 Drug: NS 0.9% 1000 ml Route: IV; Rate: 1 bolus; Site: right hand; bh1 06:40 Follow up: IV Status: Completed infusion; IV Intake: 1000ml 1 05:04 Drug: morphine 4 mg Route: IVP; Infused Over: 4 mins; Site: right hand; bh1 05:04 Follow up: Response: No adverse reaction 1 05:04 Drug: Zofran (Ondansetron) 4 mg Route: IVP; Site: right hand; bh1 05:04 Follow up: Response: No adverse reaction [facility] 05:26 Drug: Pepcid (famotidine) 20 mg Route: IVP; Site: left femoral; bh1 05:26 Follow up: Response: No adverse reaction 1 07:11 Drug: morphine 4 mg Route: IVP; Infused Over: 4 mins; Site: left forearm; 1 07:11 Follow up: Response: No adverse reaction 1 07:11 Drug: Zofran (Ondansetron) 4 mg Route: IVP; Site: left forearm; bh1 07:11 Follow up: Response: No adverse reaction [facility] 09:23 CANCELLED (Duplicate Order): Cipro (ciprofloxacin) 400 mg 200 ml IVPB once over 60 mins yovani 10:04 Drug: NS 0.9% 1000 ml Route: IV; Rate: 1 bolus; Site: left forearm; iw 10:04 Drug: Flagyl (metroNIDAZOLE) 500 mg Volume: 100 ml; Route: IVPB; Rate: 200 ml/hr; iw Infused Over: 30 mins; Site: left forearm; 10:04 Drug: Cipro (ciprofloxacin) 500 mg Route: PO; iw 10:04 Drug: SOLU-Medrol (methylPrednisoLONE) 125 mg Route: IVP; Site: left forearm; iw 10:45 Drug: morphine 4 mg Route: IVP; Infused Over: 4 mins; Site: left forearm; iw 10:45 Drug: Zofran (Ondansetron) 4 mg Route: IVP; Site: left forearm; iw Medication: 03:30 VIS not applicable for this client. bh1 Intake: 06:40 IV: 1000ml; Total: 1000ml. [facility] Outcome: 09:26 Discharge ordered by . yovani 13:01 Discharged to home ambulatory. 13:01 Condition: good 13:01 Discharge instructions given to patient, Instructed on discharge instructions, follow up and referral plans. Demonstrated understanding of instructions, follow-up care, medications, Prescriptions given X 5 13:01 Patient left the ED. Signatures: Dispatcher [employer] EDMS Mitchell Matson MD MD cha Rittger, Kevin, MD MD kdr Williams, Irene, RN RN Kenyetta Marlow Kaitlyn [id number] Leslie Marin RN RN [facility]
[2022-06-04] MEDS ORDERED: METRONIDAZOLE 500mg IVPB 500 MG/100 ML BAG IV ONE (10:01)
[2022-06-04] MEDS ORDERED: CIPROFLOXACIN HCL 500 MG TAB ONE (10:01)
[2022-06-04] MEDS ORDERED: METHYLPREDNISOLONE 125 MG INJ ONE (10:01)
--- NOTE | 2022-06-04 12:18 | RAD REPORT ---
EXAM DESCRIPTION: CT - Abdomen Pelvis W Contrast - 06/04/2022 7:26 am CLINICAL HISTORY: The patient is 56 years old and is Female; Abdominal pain, acute, nonlocalized TECHNIQUE: Axial computed tomography images of the abdomen and pelvis with intravenous contrast. S agittal and coronal reformatted images were created and reviewed. This CT exam was performed using one or more of the following dose reduction techniques: automated exposure control, adjustment of t he mA and/or kV according to patient size, and/or use of iterative reconstruction technique. COMPARISON: No relevant prior studies available. FINDINGS: Lung bases: Mild dependent atelectasis. ABDOMEN: Liver: Fatty liver. Gallbladder and bile ducts: Small calcified stone in the gallbladder. No ductal dilation. Pancreas: No findings to suggest acute pancreatitis. No mass visualized. No ductal dilation. Spleen: Unremarkable. No splenomegaly. Adrenals: Unremarkable. No mass. Kidneys and ureters: Unremarkable. No solid mass. No hydronephrosis. Stomach and bowel: There are thickened small bowel loops in the right lower quadrant consistent w ith enteritis. No bowel dilatation or obstruction. Stomach is unremarkable. No evidence of colitis or divert iculitis. Fluid in the lumen of the colon is suggestive of diarrheal symptoms. PELVIS: Appendix: The visualized appendix is normal. No pericecal inflammation to suggest acute appendici tis. Bladder: Bladder is not well distended. No stones. L5-S1 degenerative disc disease. Reproductive: Uterine fibroids. No adnexal mass. ABDOMEN and PELVIS: Intraperitoneal space: Unremarkable. No free air. No significant fluid collection. Bones/joints: See above. Soft tissues: Unremarkable. Vasculature: Unremarkable. No abdominal aortic aneurysm. Lymph nodes: No pathologically enlarged lymph nodes. IMPRESSION: 1. Findings are consistent with enteritis. 2. Fatty liver. 3. Cholelithiasis. 4. Additional non-emergent findings as above. Electronically signed by: Kristina Valera MD 06/04/2022 7:14 AM CDT Due to temporary technical issues with the PACS/Fluency reporting system, reports are being signed by the in house radiologists without review as a courtesy to insure prompt reporting. The interpreting radiologist is fully responsible for the content of the report.
[2022-06-04 15:26] VITALS: TEMP 98.3
[2022-06-04 15:38] VITALS: BP 122/73; O2SAT 100
== END 2022-06-04 13:01 | disposition home or self-care (01) ==
LOC: ER 02:49
DX: R11.10 Vomiting, unspecified (principal); R19.7 Diarrhea, unspecified; R10.812 Left upper quadrant abdominal tenderness; R10.811 Right upper quadrant abdominal tenderness; K52.89 Other specified noninfective gastroenteritis and colitis; K50.90 Crohn's disease, unspecified, without complications; Z88.0 Allergy status to penicillin
CPT/HCPCS: 36415; 74177; 80053; 83690; 85025; 99284; J2405; J2930; J3490; J7030; Q9967